=== PATIENT | female | born 1970 | race Caucasian/White ===

== ENCOUNTER 2016-07-16 19:35 | Inpatient (IN) ==
--- NOTE | 2016-07-16 21:03 | Emergency Department Note ---
Disposition Clinical Impression: Osteomyelitis of foot, left, acute Disposition: Admitted As Inpatient Condition: Fair Referrals: NO,PCP [Primary Care Provider] - Forms: ED Satisfaction Letter Time of Disposition: 00:46 Extremity Problem HPI - General Chief complaint: ED Extremity Injury, Lower Stated complaint: left foot swelling Time Seen by Provider: 07/16/16 20:51 Source: patient Limitations: no limitations Nursing Notes Reviewed: Yes Vital Signs Reviewed: Yes - History of Present Illness HPI Narrative: 45-year-old nontoxic-appearing female presents emergency Department with chief complaint of left great toe pain and swelling. Patient states that approximately 2 weeks ago, she had her entire nail removed from the left great toe due to an ingrown toenail. She states that it was so severely ingrown that that was the only option they were left with. She states that over the course of the past 3-4 days, she has noticed increased swelling, redness, and pain of her left great toe. She denies any trauma or reinjuring the area that could account for this increased pain. She denies any fever, chills, nausea, vomiting , diarrhea, abdominal pain. She states this procedure was not performed by a sanitation truck cleaner, however it was performed at a primary care provider's office. Pt Subjective Complaint: extremity pain (Left great toe), extremity swelling ( Left Great toe) Onset (ago): day(s) (3-4) Consistency: Worsening Injury Location: left, toe (Great toe) Pain Scale: 9 Quality: sharp Radiation: none Improves with: nothing Worsens with: range of motion, weight bearing, walking, palpation Associated symptoms: Reports: denies other symptoms Context: recent surgery/procedure - Related Data Allergies Allergy/AdvReac Type Severity Reaction Status Date / Time No Known Allergies Allergy Verified 07/16/16 19:48 All systems ED: reviewed and negative except as stated. Constitutional: Denies: fever, chills, weakness, weight change Cardiovascular: Denies: chest pain, palpitations, dyspnea on exertion, edema, syncope Respiratory: Denies: cough, dyspnea, wheezes, hemoptysis, stridor Gastrointestinal: Denies: abdominal pain, nausea, vomiting, diarrhea, constipation, hematemesis, melena, hematochezia Musculoskeletal: Reports: as per HPI, joint swelling (Left great toe), arthralgia (Great toe) Integumentary: Denies: rash, abrasion, lesions Neurological: Denies: headache, weakness, numbness, paresthesias, confusion, abnormal gait, vertigo Psychiatric: Denies: anxiety, depression, suicidal thoughts, homicidal thoughts , auditory hallucinations, visual hallucinations Endocrine: Denies: fatigue Hematological/Lymphatic: Denies: easy bleeding, easy bruising Past Medical History - Past Medical History Attestation: Yes The following information was validated with the patient. Source: patient Medical history: Reports: no medical history Psychiatric history: Reports: anxiety, bipolar - Social History Smoking Status: Current every day smoker Alcohol use: Reports: none Drug use: Reports: none Physical Exam - General Limitations: no limitations General appearance: alert, in no apparent distress - Head Head exam: atraumatic, normocephalic, normal inspection - Eye Eye exam: Present: normal appearance, PERRL, EOMI. Absent: nystagmus - ENT ENT exam: mucous membranes moist - Neck Neck exam: Present: normal inspection, full ROM, trachea midline. Absent: lymphadenopathy - Chest Chest inspection: Present: normal inspection, symmetric chest wall rise - Respiratory Respiratory exam: Present: normal lung sounds bilaterally. Absent: respiratory distress, wheezes, stridor, accessory muscle use, prolonged expiratory phase - Cardiovascular Cardiovascular exam: Present: regular rate, normal rhythm, normal heart sounds - Abdominal Exam Abdominal exam: Present: soft, Non-Tender, normal bowel sounds. Absent: tenderness, distention, guarding, rebound, rigidity - Expanded Lower Extremity Exam Upper leg exam: Present: normal inspection, full ROM Knee exam: Present: normal inspection, full ROM Lower leg exam: Present: normal inspection, full ROM Ankle exam: Present: normal inspection, full ROM Foot/toe exam: Present: tenderness (Left great toe, diffuse), swelling (Great toe), ecchymosis (Left great toe, predominantly overlying the area of the PIP joint), erythema. Absent: abrasion, laceration, deformity, crepitus, dislocation, amputation, puncture wound, foreign body, nail avulsion, subungual hematoma Neurovascular/Tendon exam: Present: normal 2-point discrimination, normal fine/ light touch. Absent: pulse deficit, motor deficit, sensory deficit, tendon deficit, extremity cold to touch, pallor, foot drop Gait: observed and normal - Back Exam Back exam: Present: normal inspection, full ROM. Absent: tenderness - Neurological Exam Neurological exam: Present: alert, oriented X3 - Psychiatric Psychiatric exam: Present: normal affect, normal mood - Skin Skin exam: Present: warm, dry, intact, erythema (As described above). Absent: rash, cyanosis, diaphoresis Course Course Narrative: We will obtain lab work including a CBC, BMP, sedimentation rate, and uric acid. We will obtain x-ray imaging of the left great toe and reevaluate. Case discussed with Dr. Jenkins. Dr. Jenkins had a [id number] evaluation with the patient and reviewed the CT scan results personally. Dr. Jenkins recommends admission to the hospital for IV antibiotics. I have discussed this plan with the patient and the patient is in agreement. At this time I am awaiting for a return call from the hospitalist. [id number]: The hospitalist has yet to return a call. I have notified the charge nurse of this, and she states that she will have the hospitalist re-paged. - Reevaluation(s) Reevaluation #1: Dr. Peralta returned telephone call and accepts patient for admission to the hospitalist service. Time: 00:45 Vital Signs Temperature 97.8 F 07/16/16 19:45 Pulse Rate 97 07/16/16 19:45 Respiratory Rate 18 07/16/16 19:45 Blood Pressure 151/86 07/16/16 19:45 O2 Sat by Pulse Oximetry 94 L 07/16/16 19:45 Temperature 97.8 F 07/16/16 19:45 Pulse Rate 88 07/17/16 00:20 Respiratory Rate 16 07/17/16 00:20 Blood Pressure 132/88 07/17/16 00:20 O2 Sat by Pulse Oximetry 94 L 07/17/16 00:20 Oxygen Delivery Oxygen Delivery Room Air Extremity Problem, Nontraumati - Medical Records Medical records reviewed: Yes I reviewed the patient's medical records. - Lab Data Lab results reviewed: Yes I reviewed the patient's lab results. Result diagrams: 07/16/16 21:03 07/16/16 21:03 Lab Results 07/16/16 07/16/16 07/16/16 Range/Units 21:03 21:03 21:03 WBC 7.5 (4.3-11.1) K/mcL RBC 5.14 H (3.82-4.97) M/mcL Hgb 16.4 H (11.5-15.4) g/dL Hct 50.1 H (35.3-44.9) % MCV 97.5 (83.0-100.0) fL MCH 31.9 (28.0-33.3) pg MCHC 32.7 (31.6-35.5) g/dL RDW 12.5 (11.5-14.5) % Plt Count 147 (140-400) K/mcL MPV TNP Immature Gran % 0.3 (0-4) % Seg Neutrophils % 47.5 % Lymphocytes % 40.7 % Monocytes % 10.0 % Eosinophils % 1.1 % Basophils % 0.4 % Neutrophils # 3.6 (1.6-8.9) K/mcL Lymphocytes # 3.1 (0.6-4.6) K/mcL Monocytes # 0.8 (0.0-1.3) K/mcL Eosinophils # 0.1 (0.0-0.6) K/mcL Basophils # 0.0 (0.0-0.2) K/mcL Immature Plt Fraction 11.0 H (1.1-6.1) % ESR 62 H (0-15) mm/hr Sodium 145 (136-145) mEq/L Potassium 3.9 (3.5-4.5) mEq/L Chloride 106 (98-109) mEq/L Carbon Dioxide 29 (19-29) mEq/L BUN 10 (7-20) mg/dL Creatinine 0.95 (0.57-1.11) mg/dL Est GFR ( Amer) > 60 (> 60) Est GFR (Non-Af Amer) > 60 (> 60) BUN/Creatinine Ratio 11 (6-26) Glucose 107 H (70-99) mg/dL Calculated Osmolality 300 (280-300) Uric Acid 4.7 (2.6-6.0) mg/dL Calcium 9.0 (8.6-10.8) mg/dL - Radiology Data Radiology results reviewed: Yes I reviewed the patient's radiology results. Toe X-Ray 07/16/16 20:51 IMPRESSION: Findings suspicious for osteomyelitis of the left 1st distal phalanx. D/ / Chaz Alcala MD / Chaz Alcala MD Interpreting Provider: Chaz Alcala MD Foot CT 07/16/16 21:38 IMPRESSION: Osteomyelitis of the distal phalanx of the great toe with small overlying abscess. D/ / José Luis Reddy MD / José Luis Reddy MD Interpreting Provider: José Luis Reddy MD Attestation Statement - Attestation Attestation: I examined this patient and my medical decision-making was reviewed with the RAPIER INSERTION LOOM FIXER/PA/Advanced Practice Nurse/Resident Physician. I agree with the documented findings, disposition and treatment plan as described except to the extent set forth below. Evzz-di-kmsg time provided in conjunction with Real Ignacio CNP. Patient seen and evaluated for left great toe swelling and erythema several days after having an ingrown toenail removed. She does have circumferential erythema to the phalanx proximal to the nail. Labs reviewed by me. Plan of care and management discussed by me with the mid-level provider. Patient will likely require antibiotic therapy and close follow-up
[2016-07-16 21:10] LABS: Basophils % 0.4 %; Immature Granulocytes % 0.3 % (0-4); Red Cell Distribution Width 12.5 % (11.5-14.5)
[2016-07-16 21:12] LABS: Eosinophils # 0.1 K/mcL (0.0-0.6); Eosinophils % 1.1 %; Hematocrit 50.1 % (35.3-44.9); Hemoglobin 16.4 g/dL (11.5-15.4); Lymphocytes # 3.1 K/mcL (0.6-4.6); Lymphocytes % 40.7 %; Mean Corpuscular HGB Conc 32.7 g/dL (31.6-35.5); Mean Corpuscular Hemoglobin 31.9 pg (28.0-33.3); Mean Corpuscular Volume 97.5 fL (83.0-100.0); Monocytes # 0.8 K/mcL (0.0-1.3); Neutrophils # 3.6 K/mcL (1.6-8.9); Platelet Count 147 K/mcL (140-400); Red Blood Count 5.14 M/mcL (3.82-4.97); Segmented Neutrophils % 47.5 %
[2016-07-16 21:23] LABS: BUN/Creatinine Ratio 11 (6-26); Blood Urea Nitrogen 10 mg/dL (7-20); Carbon Dioxide 29 mEq/L (19-29); Chloride 106 mEq/L (98-109); Glucose 107 mg/dL (70-99); Osmolality,Calculated 300 (280-300); Potassium 3.9 mEq/L (3.5-4.5); Sodium 145 mEq/L (136-145); Uric Acid 4.7 mg/dL (2.6-6.0); eGFR For African Americans > 60 (> 60); eGFR For Non-African Americans > 60 (> 60)
[2016-07-17] MEDS ORDERED: *HR* HYDROcodone/Acet 5/325 mg TABLET PO ONE (00:34)
[2016-07-17] MEDS ORDERED: Piperacillin/Tazobactam 3.375 GM in D5% in Water (Mini-Bag+) 100 ML IVPB ONE (00:44)
[2016-07-17] MEDS ORDERED: Vancomycin 1,250 MG in D5% in Water 250 ML IVPB ONE ×2 (00:44→01:00)
[2016-07-17] MEDS ORDERED: Ondansetron 4 MG/2 ML VIAL IVP PRN (03:44)
[2016-07-17] MEDS ORDERED: Naloxone 0.4 MG/ML INJ IVP PRN (03:44)
--- NOTE | 2016-07-17 03:52 | Internal Med History&Physical ---
Date of Encounter: 07/17/16 Time of Encounter: 03:20 Assessment and Plan (1) Osteomyelitis of foot, left, acute Current visit: Yes Status: Acute -CT foot consistent with Osteomyelitis of the distal phalanx -continue IV abx -concern for abscess on CT foot, if no clinical improvement consider podiatry eval for further evaluation -pain control (2) DVT prophylaxis Current visit: Yes Status: Acute heparin SQ (3) Cigarette smoker Current visit: Yes Status: Acute smoking cessation counseling provided patient not ready to quit at this time nicotine replacement therapy provided (4) Anxiety Current visit: Yes Status: Chronic -reported history of anxiety -Please verify and resume home medications Internal Medicine - H&P: HPI Chief complaint: painful left toe Admitted From: Home Plans for Post Hospital Care: Home History of present illness: Ms. Copeland is a 45 year old female with PMH of anxiety, bipolar disorder, and neuropathy who presents to the ER for evaluation of worsening pain in left great toe. Patient reports undergoing toenail resection 3 weeks ago secondary to an ingrown toenail and states status post surgical resection she started experiencing severe pain. Reports of worsening pain for the last few days without any adequate control with [id number] pain medications to which she came to the ER. In the ER patient was noted to have osteomyelitis of the distal phalanx prompting her admission. At this time she is resting in bed and complains of severe pain in the left great toe which was not adequately relieved with the pain management she received in the ER. She however denies any headache, chest pain, shortness of breath, abdominal pain, nausea, vomiting , fever, or chills. Social Hx: Everyday smoker (1ppd x 20years) Past Med Surg Social Fam HX - Past Medical History Psychiatric history: anxiety, bipolar - Social History Smoking Status: Current every day smoker Alcohol use: none Drug use: none - Family History Father Living Status: Age at : 56 Cause of : [place] Hx Family Cardiac Disorders: Yes Internal Medicine - H&P: Meds Allergies No Known Allergies Allergy (Verified 07/16/16 19:48) All Systems PM: A 10-system review of systems was performed and is negative for pertinent findings except as documented above in the HPI. - Constitutional Constitutional: as per HPI - Constitutional Vitals: Temp Pulse Resp BP Pulse Ox 97.3 F L 83 17 148/95 95 01/13/17 02:13 07/17/16 02:13 07/17/16 02:13 07/17/16 02:13 07/17/16 02:13 General appearance: Present: cooperative, mild distress (painful distress in left great toe), A&O X 3, obese, answers questions appropriately - Head Head exam: Present: atraumatic, normocephalic - Eye Eye exam: Present: PERRL, conjuntiva pink, sclera anicteric - Respiratory Respiratory exam: Present: CTAB. Absent: accessory muscle use, rales, rhonchi, wheezes - Cardiovascular Cardiovascular exam: Present: RRR, +S1, +S2. Absent: diastolic murmur, gallop, rubs, systolic murmur - GI/Abdominal GI/Abdominal exam: Present: normal bowel sounds, soft, no peritoneal signs. Absent: distended, tenderness - Extremities Exam Extremities exam: Present: tenderness (left great toe erythema/tenderness), warm , radial pulses palpable and symetrical. Absent: calf tenderness, pedal edema - Neurological Exam Neurological exam: Present: alert, oriented X3, no focal deficits - Psychiatric Psychiatric exam: Present: normal affect, normal mood Internal Med - H&P Results - Labs CBC & Chem 7: 07/16/16 21:03 07/16/16 21:03
[2016-07-17] MEDS: *HR* Heparin 5,000 UNIT/ML VIAL SQ SCH ×3 (04:05→22:34)
[2016-07-17] MEDS: 0.9 % Sodium Chloride 1,000 ML IVC SCH ×2 (04:05→16:41)
[2016-07-17] MEDS: *HR* Morphine 2 MG/ML SYRINGE IVP PRN ×4 (04:05→20:05)
[2016-07-17] MEDS: Nicotine 21 MG PATCH.TD24 TD SCH (04:05)
[2016-07-17 04:36] LABS: Basophils % 0.4 %; Monocytes % 10.4 %
[2016-07-17 04:38] LABS: Eosinophils # 0.1 K/mcL (0.0-0.6); Eosinophils % 1.2 %; Hematocrit 44.6 % (35.3-44.9); Hemoglobin 14.6 g/dL (11.5-15.4); Immature Granulocytes % 0.1 % (0-4); Immature Platelets 9.1 % (1.1-6.1); Lymphocytes % 45.7 %; Mean Corpuscular HGB Conc 32.7 g/dL (31.6-35.5); Mean Corpuscular Hemoglobin 31.9 pg (28.0-33.3); Mean Corpuscular Volume 97.4 fL (83.0-100.0); Monocytes # 0.9 K/mcL (0.0-1.3); Platelet Count 119 K/mcL (140-400); Red Blood Count 4.58 M/mcL (3.82-4.97); Red Cell Distribution Width 12.6 % (11.5-14.5); Segmented Neutrophils % 42.2 %
[2016-07-17 04:54] LABS: Chol/HDL Ratio 4.6 (0-4.9); Magnesium 2.1 mg/dL (1.6-2.6); Phosphorous 3.5 mg/dL (2.3-4.7)
[2016-07-17] MEDS ORDERED: Vancomycin 1,000 MG in D5% in Water 250 ML IVPB SCH (06:00)
[2016-07-17 06:51] LABS: Lymphocytes # 3.8 K/mcL (0.6-4.6); Neutrophils # 3.5 K/mcL (1.6-8.9)
[2016-07-17 06:52] LABS: Large Platelets Present (Not Present); Platelet Estimate Decreased (Normal)
[2016-07-17] MEDS: Piperacillin/Tazobactam 3.375 GM in D5% in Water (Mini-Bag+) 100 ML IVPB SCH ×2 (08:55→16:40)
[2016-07-17] MEDS: Vancomycin 1,250 MG in D5% in Water 250 ML IVPB SCH (14:44)
[2016-07-17] MEDS: *HR* OxyCODONE/APAP 5/325 TABLET PO PRN ×2 (16:39→22:35)
--- NOTE | 2016-07-17 16:53 | Podiatry Consult Note ---
Date of Encounter: 07/17/16 Time of Encounter: 10:00 Assessment and Plan (1) Osteomyelitis of foot, left, acute Current visit: Yes Status: Acute Assessed and examined patient at bedside Mild irritation noted to toe #1 left foot not extending past IP joint of toe No open areas or injury noted to toe Explained imaging results to patient at this time Explained options for treatment- medical management or possible OR intervention per for I&D and debridement of distal phalanx Patient emotional at this time Explained that would be by this evening to explain options again, go over surgical procedure if necessary and to make a final decision Verbalized understanding agreeable with plan Continue antibiotic therapy at this time Limit weight bearing Call with worsening of symptoms or any concerns History of Present Illness HPI: Ms. Copeland is a 45 year old female with PMH of anxiety, bipolar disorder, and neuropathy who presents to the ER for evaluation of worsening pain in left great toe. Patient reports undergoing toenail resection 3 weeks ago secondary to an ingrown toenail at [facility] and states that a few days after nail avulsion a motorized scooter fell on her toe. Reports of worsening pain for the last few days without any new injury and without adequate control with hlou-hpk-exnoxip pain medications CT reveals osteomyelitis of the distal phalanx of toe #1. She is resting comfortably on arrival. denies any chest pain, shortness of breath, nausea, vomiting. States she had some chills through the night. Past Med Surg Social Fam HX - Past Medical History Medical history: no medical history Psychiatric history: anxiety, bipolar - Social History Smoking Status: Current every day smoker Alcohol use: none Drug use: none - Family History Father Living Status: Age at : 56 Cause of : ID Hx Family Cardiac Disorders: Yes Medications and Allergies Buspirone HCl [Buspar] 15 mg PO BID PRN 07/17/16 [History] Cephalexin [Keflex] 500 mg PO TID 07/17/16 [History] Doxepin [Sinequan] 25 mg PO DAILY 07/17/16 [History] Gabapentin [Gabapentin] 600 mg PO QID PRN 07/17/16 [History] Lamotrigine [Lamotrigine] 200 mg PO BID 07/17/16 [History] Quetiapine Fumarate [Seroquel] 25 - 50 mg PO HS 07/17/16 [History] Allergies No Known Allergies Allergy (Verified 07/16/16 19:48) All Systems Reviewed: A 10-system review of systems was performed and is negative for pertinent findings except as documented above in the HPI. Physical Exam - Constitutional Vitals: Temp Pulse Resp BP Pulse Ox 98.1 F 86 18 154/91 95 07/17/16 15:56 07/17/16 15:56 07/17/16 15:56 07/17/16 15:56 07/17/16 15:56 Exam: Patient is awake alert and oriented on arrival Patient states pain to left great toe 5/10 at this time Distal aspect of left great toe noted to appear mildly irritated in appearance with slight erythema and edema, marked per nurse to monitor, does not extend past IP joint of toe. Patient confirms pain with palpation Noted area of complete nail avulsion, some regrowth of nail noted. Nail bed does not appear infected at this time There are no noted open areas of visible abscessed areas No ulcerations No abrasions or lacerations No ecchymosis Mild warmth noted to toe Pulses +2/4, cap refill <3 seconds, warm from tibia to toes to LLE Sensation intact to light touch Patient denies any numbness or tingling ROM intact muscle strength 5/5 to LLE No edema noted to BLE Results - Labs Result Diagrams: 07/19/16 06:34 07/19/16 06:34 Labs: Abnormal lab results Plt Count 119 K/mcL (140-400) L 07/17/16 04:03 MPV 15.0 fL (9.4-12.4) H 07/17/16 04:03 Platelet Estimate Decreased (Normal) L 07/17/16 04:03 Large Platelets Present (Not Present) A 07/17/16 04:03 Immature Plt Fraction 9.1 % (1.1-6.1) H 07/17/16 04:03 ESR 62 mm/hr (0-15) H 07/16/16 21:03 Glucose 107 mg/dL (70-99) H 07/16/16 21:03 C-Reactive Protein 7 mg/L (Less than 5) H 07/17/16 04:03 LDL Cholesterol, Calc 103 mg/dL (0-99) H 07/17/16 04:03 HDL Cholesterol 33 mg/dL (40-59) L 07/17/16 04:03 H & H 07/17/16 Range/Units 04:03 Hgb 14.6 D (11.5-15.4) g/dL Hct 44.6 (35.3-44.9) % All other labs normal. Consult Discharge Plan - Plan Referrals: NO,PCP [Primary Care Provider] -
--- NOTE | 2016-07-17 17:15 | Internal Med Progress Note ---
Date of Encounter: 07/17/16 Time of Encounter: 10:00 - Assessment and plan (1) Osteomyelitis of foot, left, acute Current Visit: Yes Status: Acute Assessment and plan: CT shows acute osteomyelitis. On Vanco and Zosyn. Podiatry consult appreciated. Plan for surgery tomorrow. Patient is at high risk because she has acute osteomyelitis need a surgical intervention, also she is on vancomycin which need close monitoring (2) Anxiety Current Visit: Yes Status: Chronic Assessment and plan: Continue home medication. Adequate pain control. (3) Cigarette smoker Current Visit: Yes Status: Acute Assessment and plan: Smoking cessation education. Patient is on nicotine patch. (4) DVT prophylaxis Current Visit: Yes Status: Acute Assessment and plan: Hypertension subcutaneously - Time Spent With Patient Greater than 35 minutes - Subjective Interval history: Patient is a 45-year-old female admitted for left first toe infection. Her past medical history is significant for anxiety, bipolar disorder, and tobacco abuse. Patient was seen and examined. She is in acute pain. No fever, vital signs stable. Podiatry consult appreciated, plan for surgery tomorrow morning. Will continue vancomycin and Zosyn treatment. - Constitutional Vitals: Temp Pulse Resp BP Pulse Ox 98.1 F 86 18 154/91 95 07/17/16 15:56 07/17/16 15:56 07/17/16 15:56 07/17/16 15:56 07/17/16 15:56 General appearance: Present: cooperative, mild distress (painful distress in left great toe), A&O X 3, obese, answers questions appropriately - Head Head exam: Present: atraumatic, normocephalic - Eye Eye exam: Present: PERRL, conjuntiva pink, sclera anicteric Pupils: Present: PERRL - Neck Neck exam general surgery: Present: supple, trachea midline. Absent: lymphadenopathy - Respiratory Respiratory exam: Present: CTAB. Absent: accessory muscle use, rales, rhonchi, wheezes - Cardiovascular Cardiovascular exam: Present: RRR, +S1, +S2. Absent: diastolic murmur, gallop, rubs, systolic murmur - GI/Abdominal GI/Abdominal exam: Present: normal bowel sounds, soft, no peritoneal signs. Absent: distended, tenderness - Extremities Exam Extremities exam: Present: warm, radial pulses palpable and symetrical. Absent : calf tenderness, cyanotic, pedal edema Additional comments: The great toe of left foot is swelling, with severe tenderness. - Neurological Exam Neurological exam: Present: CN II-XII intact, oriented X3, no focal deficits. Absent: pronater drift, facial droop, speech deficit - Skin Skin exam: Present: dry, intact Internal Medicine: Result - Labs CBC & Chem 7: 07/17/16 04:03 07/16/16 21:03 Labs: Short CBC 07/17/16 Range/Units 04:03 WBC 8.2 (4.3-11.1) K/mcL Hgb 14.6 D (11.5-15.4) g/dL Hct 44.6 (35.3-44.9) % Plt Count 119 L (140-400) K/mcL Neutrophils # 3.5 (1.6-8.9) K/mcL Consult Discharge Plan - Plan Referrals: NO,PCP [Primary Care Provider] -
[2016-07-17] MEDS ORDERED: Gabapentin 300 MG CAPSULE PO PRN (17:20)
[2016-07-17] MEDS: lamoTRIgine 100 MG TABLET PO SCH (22:36)
[2016-07-18] MEDS: *HR* Morphine 2 MG/ML SYRINGE IVP PRN ×4 (00:23→18:18)
[2016-07-18] MEDS: Piperacillin/Tazobactam 3.375 GM in D5% in Water (Mini-Bag+) 100 ML IVPB SCH ×3 (00:24→15:27)
[2016-07-18] MEDS: Vancomycin 1,250 MG in D5% in Water 250 ML IVPB SCH ×2 (04:15→16:06)
[2016-07-18] MEDS: *HR* Heparin 5,000 UNIT/ML VIAL SQ SCH ×2 (05:31→21:38)
[2016-07-18] MEDS: *HR* OxyCODONE/APAP 5/325 TABLET PO PRN ×3 (06:34→21:43)
[2016-07-18] MEDS: lamoTRIgine 100 MG TABLET PO SCH ×3 (07:09→21:38)
[2016-07-18] MEDS: Nicotine 21 MG PATCH.TD24 TD SCH (07:14)
[2016-07-18] MEDS: 0.9 % Sodium Chloride 1,000 ML IVC SCH (10:02)
--- NOTE | 2016-07-18 10:16 | Podiatry Progress Note ---
Date of Encounter: 07/17/16 Time of Encounter: 18:10 - Assessment and Plan (1) Osteomyelitis of foot, left, acute Current Visit: Yes Status: Acute Assessment: #1 osteomyelitis with ischemia of the left great toe #2 comorbidities as outlined in history Plan: #1 agree with antibiotic therapy #2 we discussed the risks versus benefits as well as alternatives to partial amputation left great toe to eradicate the infection and control pain. We discussed 6 weeks of IV antibiotics versus surgical intervention. Regardless we would need to perform a bone biopsy to determine the infecting organism. Patient opted for distal toe amputation. We discussed the risks versus benefits of that procedure. Risks include but not limited to loss of toe, toes, foot, leg, life, DVT, blood clots. Need for further surgery , failure of this procedure to produce desired results. Patient voices comprehension agrees to plan of care. Patient had opportunity to ask questions about planned procedure and its implications ramifications complications. Those questions were answered to her satisfaction. We will proceed the next 24 hours. Subjective Principal diagnosis: Osteomyelitis of the great toe, left foot. Interval history: Patient states that she had a ingrown nail removed approximately 1 month ago. She then subsequently sustained a contusion to left great toe proximally 2-3 weeks after she had nail surgery. She presented to the ED with increasing signs of pain redness and swelling to the left great toe. Imaging relates likely osteomyelitis. In spite of the fact that she has readily palpable pulses we cannot completely rule out ischemia as a secondary cause of her pain and soft tissue changes to her left great toe. She presently is in significant pain as she is sitting on the bed holding her foot rocking back and forth. This in spite of pain control. Patient is alert and oriented no fever chills nausea vomiting. No chest pain or shortness of breath. She answers questions directly without hesitation. Objective - Vital Signs Vital Signs: Vital Signs Temp Pulse Resp BP Pulse Ox 07/18/16 06:30 98.0 F 67 18 146/85 97 07/18/16 00:22 98 F 71 15 124/82 95 07/17/16 19:37 98.3 F 73 17 152/90 97 07/17/16 15:56 98.1 F 86 18 154/91 95 07/17/16 11:06 98.0 F 88 18 147/82 95 Intake and Output 07/17/16 07/18/16 07/18/16 23:59 07:59 15:59 Intake Total 1100 / 1100 1350 / 1350 Balance 1100 / 1100 1350 / 1350 Intake: IV Fluids 1100 / 1100 1350 / 1350 0.9 % Sodium Chloride 1, 1000 / 1000 1000 / 1000 000 ML @ 75 mls/hr IVC . [id number] [facility]ARD[facility] Rx#: [id number] Zosyn 3.375 GM In 100 / 100 100 / 100 Dextrose 5% (Minibag+) 100 ML 100 ML @ 25 mls/hr IVPB Q8HR [facility] Rx#: [id number] Vancocin 1,250 MG In 250 / 250 Dextrose 5% 250 ML @ 166. 667 mls/hr IVPB Q12H [facility] Rx#:[id number] - Exam Exam: Exam vascular: Pedal pulses are palpable DP and PT graded 2/4 left foot. Skin is warm to touch from knees to toes except for left great toe which is cool but does have capillary fill time of less than 3 seconds. All, lateral 4 toes have a capillary fill time of 2 seconds or less.. We do not see any active draining sinus on the dorsal aspect of her left great toe. Neurologic: No gross or focal neurological deficits. No spasticity. No rigidity. No flaccidity. Musculoskeletal: No gross defect or deformity on visual examination. Patient does have adequate range of motion active and passive of the ankle subtalar metatarsophalangeal joints except for guarding of the left great toe due to pain. Integument Robert cyanotic dusky ischemic right great toe is edematous With a painful to touch., On the distal one third of the toe. There is no evidence of cellulitis or lymphangitis emanating from the toe itself proximally. Incision: Present: red, swollen - Lab Result Diagrams: 07/17/16 04:03 07/16/16 21:03 Labs: Abnormal lab results Plt Count 119 K/mcL (140-400) L 07/17/16 04:03 MPV 15.0 fL (9.4-12.4) H 07/17/16 04:03 Platelet Estimate Decreased (Normal) L 07/17/16 04:03 Large Platelets Present (Not Present) A 07/17/16 04:03 Immature Plt Fraction 9.1 % (1.1-6.1) H 07/17/16 04:03 ESR 62 mm/hr (0-15) H 07/16/16 21:03 Glucose 107 mg/dL (70-99) H 07/16/16 21:03 C-Reactive Protein 7 mg/L (Less than 5) H 07/17/16 04:03 LDL Cholesterol, Calc 103 mg/dL (0-99) H 07/17/16 04:03 HDL Cholesterol 33 mg/dL (40-59) L 07/17/16 04:03 Consult Discharge Plan - Plan Referrals: NO,PCP [Primary Care Provider] -
[2016-07-18 10:21] LABS: Monocytes % 9.9 %
[2016-07-18 10:23] LABS: Basophils % 0.3 %; Eosinophils # 0.1 K/mcL (0.0-0.6); Eosinophils % 1.4 %; Hematocrit 44.5 % (35.3-44.9); Hemoglobin 14.7 g/dL (11.5-15.4); Immature Granulocytes % 0.2 % (0-4); Immature Platelets 10.1 % (1.1-6.1); Lymphocytes # 2.4 K/mcL (0.6-4.6); Lymphocytes % 42.1 %; Mean Corpuscular Hemoglobin 31.9 pg (28.0-33.3); Mean Corpuscular Volume 96.5 fL (83.0-100.0); Mean Platelet Volume 15.3 fL (9.4-12.4); Monocytes # 0.6 K/mcL (0.0-1.3); Neutrophils # 2.7 K/mcL (1.6-8.9); Red Blood Count 4.61 M/mcL (3.82-4.97); Red Cell Distribution Width 12.5 % (11.5-14.5); Segmented Neutrophils % 46.1 %
[2016-07-18 10:33] LABS: BUN/Creatinine Ratio 9 (6-26); Blood Urea Nitrogen 6 mg/dL (7-20); Calcium 8.6 mg/dL (8.6-10.8); Carbon Dioxide 25 mEq/L (19-29); Chloride 107 mEq/L (98-109); Glucose 92 mg/dL (70-99); Osmolality,Calculated 289 (280-300); Potassium 3.9 mEq/L (3.5-4.5); Sodium 141 mEq/L (136-145); eGFR For African Americans > 60 (> 60); eGFR For Non-African Americans > 60 (> 60)
[2016-07-18 11:06] LABS: Platelet Count 98 K/mcL (140-400)
[2016-07-18] MEDS ORDERED: Albuterol 2.5 MG/3 ML NEBULIZER ONE (11:06)
[2016-07-18] MEDS ORDERED: Albuterol 2.5 MG/3 ML NEBULIZER IH ONE (11:06)
--- NOTE | 2016-07-18 11:09 | Anesthesia Evaluation PreOp ---
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: Denies Any Significant HX, Other (bipolar, anxiety, chronic LBP with occasional radiculopathy left leg) Other Medical History: Hepatic (Hepatitis C), GERD Anesthesia History: No Prior Anesthetic Complications, Past Anesthesia (daniel, csection, knee arthroscopy, exp lap) Alcohol Use: none Drug use: none Medications and Allergies Buspirone HCl [Buspar] 15 mg PO BID PRN 07/17/16 [History] Cephalexin [Keflex] 500 mg PO TID 07/17/16 [History] Doxepin [Sinequan] 25 mg PO DAILY 07/17/16 [History] Gabapentin [Gabapentin] 600 mg PO QID PRN 07/17/16 [History] Lamotrigine [Lamotrigine] 200 mg PO BID 07/17/16 [History] Quetiapine Fumarate [Seroquel] 25 - 50 mg PO HS 07/17/16 [History] Allergies No Known Allergies Allergy (Verified 07/16/16 19:48) - Meds/Allergy Pre-op Review Medications Reviewed: Yes Allergies Reviewed: Yes Beta Blockers on Current Med List: No Anesthesia Results - Labs 07/18/16 09:35 07/18/16 09:35 Anesthesia Exam O2 Sat O2 Sat by Pulse Oximetry 97 O2 Sat by Pulse Oximetry 95 O2 Sat by Pulse Oximetry 97 O2 Sat by Pulse Oximetry 95 Vital Signs Temp Pulse Resp BP Pulse Ox 97.8 F 97 18 151/86 94 L 07/16/16 19:45 07/16/16 19:45 07/16/16 19:45 07/16/16 19:45 07/16/16 19:45 Height: 64 Weight: 76 NPO (# of Hours): greater than 8 hours - HEENT Pupil (Motor): Pupils equal Mallampati: II Teeth: Edentulous Oral Opening: Greater than 3 - LETTER OF CREDIT DOCUMENT EXAMINER LOC: Oriented LETTER OF CREDIT DOCUMENT EXAMINER Motor: Normal RUE, Normal LUE, Normal RLE, Normal LLE, Normal Face LETTER OF CREDIT DOCUMENT EXAMINER Sensory: Normal: RUE, LUE, RLE, LLE, Face - Cardiac Rhythm: Regular Murmur: None JVD: No Carotid Bruit: No - Pulmonary Breath Sounds: bilateral Clear Respiratory Effort: Symmetrical Anesthesia Assess/Plan ASA Score: 2 Modified Ayanna Scale for Level of Consciousness: Cooperative, oriented, and tranquil Anesthetic Plan: MAC Monitoring Plan: Standard Monitors Recovery Plan: PACU <Delgado Melo - Last Filed: 07/18/16 12:37> Date of Encounter: 07/18/16 - Past History : No Test: Negative (07/18/2016) Anesthesia Results - Labs 07/18/16 09:35 07/18/16 09:35
[2016-07-18] MEDS ORDERED: Propofol 500 MG/50 ML INFUS..BTL ONE (11:32)
[2016-07-18] MEDS ORDERED: *HR* FentaNYL (PF) 100 MCG/2 ML VIAL ONE (11:33)
[2016-07-18] MEDS ORDERED: Ondansetron 4 MG/2 ML VIAL ONE (11:33)
[2016-07-18] MEDS ORDERED: Lidocaine -MPF 2% 2 ML VIAL ONE (11:33)
[2016-07-18] MEDS ORDERED: *HR* Midazolam HCl 2 MG/2 ML VIAL ONE (11:38)
[2016-07-18] MEDS ORDERED: Bupivacaine/Clonidine Syringe 1 EACH SYRINGE ONE (11:54)
[2016-07-18] MEDS ORDERED: Naloxone 0.4 MG/ML INJ IVP PRN (14:04)
[2016-07-18] MEDS ORDERED: Ondansetron 4 MG/2 ML VIAL IVP PRN (14:04)
--- NOTE | 2016-07-18 14:04 | Anesthesia Evaluation Post Op ---
Date of Encounter: 07/18/16 Time of Encounter: 14:04 - Vital Signs Vital Signs: Vital Signs/O2 Sat, Most Current Temp Pulse Resp BP Pulse Ox 98.0 F 67 18 146/85 97 07/18/16 06:30 07/18/16 06:30 07/18/16 06:30 07/18/16 06:30 07/18/16 06:30 - Lungs Lungs: Clear Ascult./Percussion - Airway Airway: Non-obstructed - Cardiovascular Regular Rate - Mental Status Mental Status: Alert & Oriented, Answers Appropriately - Pain Pain Scale: 0 Pain Scale used: Numeric (1 - 10) - Nausea Vomiting Nausea Vomiting: Not Present - Hydration Hydration: NPO, Has not voided - Discharge PostOp Status: Transfer Patient to floor
--- NOTE | 2016-07-18 14:10 | Orthopedic Operative Note ---
Date of procedure: 07/18/16 Pre-op diagnosis: Osteomyelitis left great toe Post-op diagnosis: other (Osteomyelitis with abscess formation distal phalanx left great toe) Procedure: 07/18/16 14:04 #1 incision and drainage to bone cortex for osteomyelitis #2 partial amputation toe #1 left foot Implants: None Complications: None Anesthesia: MAC Local Anesthetics: 0.25% Sensorcaine HCL SubQ (cc) Surgeon: Delgado Wade Estimated blood loss (cc): 5 Tourniquet Time (Minutes): 0 Specimen: Distal toe phalanx #1 left, cultures aerobe and anaerobe Condition: stable Disposition: floor Procedure in Detail: 07/18/16 14:05 Details in summary of procedure: Patient was brought to the surgical suite. A sign in procedure was performed. Patient was then transferred to the surgical table and positioned properly safely securely. Left was elevated on the foam block. No tourniquet was used. Anesthetic timeout was taken. Left ankle was then prepped with alcohol 3 times a modified ankle block was carried out using local anesthesia without difficulty or complication. It was augmented by a V block just proximal to the first metatarsal phalangeal joint. Left foot was then prepped and draped in usual sterile manner. Surgical timeout taken. That juncture planned incision was drawn to the medial aspect of the left great toe with long the metaphysis of the proximal phalanx and brought distally to the level of the IPJ and transversely just distal to the IPJ to the lateral aspect of the toe at the junction of lateral plantar skin and then proximally to the webspace. The plantar flap was then developed by drawing a planned incision from the junction of the IPJ plantarly and then circumferentially around the distal aspect of the toe leading the dorsal incision on the lateral aspect of the digit. That juncture using a #15 scalpel blade incision was made medially and brought distally and along the dorsal aspect of the toe whereupon. Making the incision seropurulent drainage was expressed after the incision was complete. It was medially cultured aerobic and anaerobic. Incision was complete to the lateral aspect of the toe using a fresh blade and using another fresh #15 scalpel blade the plantar flap was then developed. the incisions were carried directly down to bone. That juncture the IP joint was entered and was found to be intact without purulence. Dissection was then carried plantarly and distally along the periosteum of the distal phalanx to the distal incision. The distal phalanx and the distal dorsal aspect the digit within resected and sent for gross and microscopic. The wound was then flushed gross amounts sterile saline. Flexor tendon was isolated and then sewn to the dorsal aspect of the periosteum the proximal phalanx the wound itself was discussed inspected and found to be without any necrosis or purulent drainage. It was clean wound edges were noted to bleed freely without necessitating use of Bovie ligature. After thorough irrigation was sprayed with PRP. Distal flap was remodeled by excising a small V flap with the apex plantar-based dorsal. The wound was then repaired with 3-0 Prolene without difficulty augmented with Steri-Strips to reduce the stress on the incision line itself. Capillary refill time was noted to be less than 3 seconds on either side of the incision dorsal flap and plantar flaps. Wound was dressed with 4 x 4's and a Kerlix dressing with mild compression locations encountered. Patient was sent to holding room in good condition with vital signs stable. Estimate blood loss less than 5 mL.
[2016-07-18] MEDS ORDERED: Vancomycin 1,250 MG in D5% in Water 250 ML IVPB SCH (14:30)
--- NOTE | 2016-07-18 17:39 | Internal Med Progress Note ---
Date of Encounter: 07/18/16 Time of Encounter: 09:00 - Assessment and plan (1) Osteomyelitis of foot, left, acute Current Visit: Yes Status: Acute Assessment and plan: CT shows acute osteomyelitis. On Vanco and Zosyn. Podiatry consult appreciated. Did great toe partial amputation and drainage today.. Patient is at high risk because she has acute osteomyelitis need a surgical intervention, also she is on vancomycin which need close monitoring (2) Anxiety Current Visit: Yes Status: Chronic Assessment and plan: Continue home medication. Adequate pain control. (3) Cigarette smoker Current Visit: Yes Status: Acute Assessment and plan: Smoking cessation education. Patient is on nicotine patch. (4) DVT prophylaxis Current Visit: Yes Status: Acute Assessment and plan: Heparin subcutaneously - Subjective Interval history: Patient is a 45-year-old female admitted for left first toe infection. Her past medical history is significant for anxiety, bipolar disorder, and tobacco abuse. Patient was seen and examined. She did partial amputation of left great toe today. She is in acute pain. No fever, vital signs stable. Will continue vancomycin and Zosyn treatment. - Constitutional Vitals: Temp Pulse Resp BP Pulse Ox 97.9 F 67 18 114/71 95 07/18/16 15:14 07/18/16 15:14 07/18/16 15:14 07/18/16 15:14 07/18/16 15:14 General appearance: Present: cooperative, mild distress (painful distress in left great toe), A&O X 3, obese, answers questions appropriately - Head Head exam: Present: atraumatic, normocephalic - Eye Eye exam: Present: PERRL, conjuntiva pink, sclera anicteric Pupils: Present: PERRL - Neck Neck exam general surgery: Present: supple, trachea midline. Absent: lymphadenopathy - Respiratory Respiratory exam: Present: CTAB. Absent: accessory muscle use, rales, rhonchi, wheezes - Cardiovascular Cardiovascular exam: Present: RRR, +S1, +S2. Absent: diastolic murmur, gallop, rubs, systolic murmur - GI/Abdominal GI/Abdominal exam: Present: normal bowel sounds, soft, no peritoneal signs. Absent: distended, tenderness - Extremities Exam Extremities exam: Present: warm, radial pulses palpable and symetrical. Absent : calf tenderness, cyanotic, pedal edema Additional comments: Left great toe swelling and tender. - Neurological Exam Neurological exam: Present: CN II-XII intact, oriented X3, no focal deficits. Absent: pronater drift, facial droop, speech deficit - Skin Skin exam: Present: dry, intact Internal Medicine: Result - Labs CBC & Chem 7: 07/18/16 09:35 07/18/16 09:35 Labs: Short CBC 07/18/16 Range/Units 09:35 WBC 5.8 (4.3-11.1) K/mcL Hgb 14.7 (11.5-15.4) g/dL Hct 44.5 (35.3-44.9) % Plt Count 98 L (140-400) K/mcL Neutrophils # 2.7 (1.6-8.9) K/mcL BMP 07/18/16 09:35 Sodium 141 Potassium 3.9 Chloride 107 Carbon Dioxide 25 BUN 6 L Creatinine 0.67 Glucose 92 Calcium 8.6 Consult Discharge Plan - Plan Referrals: NO,PCP [Primary Care Provider] -
[2016-07-18] MEDS ORDERED: Ketorolac 30 MG/ML VIAL IVP PRN (21:34)
[2016-07-19] MEDS: *HR* Morphine 2 MG/ML SYRINGE IVP PRN ×4 (00:27→21:43)
[2016-07-19] MEDS: Piperacillin/Tazobactam 3.375 GM in D5% in Water (Mini-Bag+) 100 ML IVPB SCH ×4 (00:34→23:03)
[2016-07-19] MEDS: Gabapentin 300 MG CAPSULE PO PRN (01:23)
[2016-07-19] MEDS ORDERED: Acetaminophen IV 1,000 MG/100 ML INFUS..BTL IVPB ONE (01:48)
[2016-07-19] MEDS: 0.9 % Sodium Chloride 1,000 ML IVC SCH ×3 (04:51→21:44)
[2016-07-19] MEDS: Vancomycin 1,250 MG in D5% in Water 250 ML IVPB SCH ×2 (04:52→15:32)
[2016-07-19] MEDS: *HR* Heparin 5,000 UNIT/ML VIAL SQ SCH ×3 (05:00→21:43)
[2016-07-19 07:08] LABS: Hemoglobin 13.5 g/dL (11.5-15.4); Immature Granulocytes % 0.4 % (0-4); Mean Corpuscular Volume 97.9 fL (83.0-100.0)
[2016-07-19 07:10] LABS: Basophils % 0.5 %; Eosinophils # 0.1 K/mcL (0.0-0.6); Eosinophils % 0.9 %; Hematocrit 41.4 % (35.3-44.9); Immature Platelets 9.3 % (1.1-6.1); Lymphocytes # 2.2 K/mcL (0.6-4.6); Lymphocytes % 38.9 %; Mean Corpuscular HGB Conc 32.6 g/dL (31.6-35.5); Mean Corpuscular Hemoglobin 31.9 pg (28.0-33.3); Mean Platelet Volume 15.7 fL (9.4-12.4); Monocytes # 0.5 K/mcL (0.0-1.3); Monocytes % 9.5 %; Neutrophils # 2.8 K/mcL (1.6-8.9); Red Blood Count 4.23 M/mcL (3.82-4.97); Red Cell Distribution Width 12.9 % (11.5-14.5); Segmented Neutrophils % 49.8 %
[2016-07-19 07:17] LABS: BUN/Creatinine Ratio 7 (6-26); Calcium 8.1 mg/dL (8.6-10.8); Carbon Dioxide 25 mEq/L (19-29); Chloride 112 mEq/L (98-109); Glucose 110 mg/dL (70-99); Osmolality,Calculated 292 (280-300); Potassium 3.8 mEq/L (3.5-4.5); Sodium 142 mEq/L (136-145); eGFR For African Americans > 60 (> 60); eGFR For Non-African Americans > 60 (> 60)
[2016-07-19 07:22] LABS: Blood Urea Nitrogen 5 mg/dL (7-20)
[2016-07-19 08:07] LABS: Platelet Count 91 K/mcL (140-400)
[2016-07-19 08:10] LABS: Reactive Lymphocytes Present (Not Present)
[2016-07-19 08:11] LABS: Platelet Estimate Slight Decrease (Normal)
[2016-07-19] MEDS: lamoTRIgine 100 MG TABLET PO SCH ×2 (08:48→21:44)
[2016-07-19] MEDS: *HR* OxyCODONE/APAP 5/325 TABLET PO PRN ×3 (08:49→23:00)
[2016-07-19] MEDS: Nicotine 21 MG PATCH.TD24 TD SCH (08:49)
--- NOTE | 2016-07-19 14:58 | Podiatry Progress Note ---
Date of Encounter: 07/19/16 Time of Encounter: 14:56 - Assessment and Plan (1) Osteomyelitis of foot, left, acute Current Visit: Yes Status: Acute Assessment: #1 osteomyelitis with ischemia of the left great toe #2 comorbidities as outlined in history Plan: #1 agree with antibiotic therapy #2 we discussed the risks versus benefits as well as alternatives to partial amputation left great toe to eradicate the infection and control pain. We discussed 6 weeks of IV antibiotics versus surgical intervention. Regardless we would need to perform a bone biopsy to determine the infecting organism. Patient opted for distal toe amputation. We discussed the risks versus benefits of that procedure. Risks include but not limited to loss of toe, toes, foot, leg, life, DVT, blood clots. Need for further surgery , failure of this procedure to produce desired results. Patient voices comprehension agrees to plan of care. Patient had opportunity to ask questions about planned procedure and its implications ramifications complications. Those questions were answered to her satisfaction. We will proceed the next 24 hours. Dictation for 07/19/2016 Assessment: #1 postop day #1 partial amputation left great toe healing uneventfully #2 no postoperative complications pain minimal but associated with surgery only. Plan: #1 awaiting cultures intraoperative. , #2 plan on discharge from my standpoint for the next 24/48 hrs. on by mouth antibiotics and local wound care and protective shoe gear/cast boot. Subjective Principal diagnosis: Osteomyelitis of the great toe, left foot. Interval history: Patient states that she had a ingrown nail removed approximately 1 month ago. She then subsequently sustained a contusion to left great toe proximally 2-3 weeks after she had nail surgery. She presented to the ED with increasing signs of pain redness and swelling to the left great toe. Imaging relates likely osteomyelitis. In spite of the fact that she has readily palpable pulses we cannot completely rule out ischemia as a secondary cause of her pain and soft tissue changes to her left great toe. She presently is in significant pain as she is sitting on the bed holding her foot rocking back and forth. This in spite of pain control. Patient is alert and oriented no fever chills nausea vomiting. No chest pain or shortness of breath. She answers questions directly without hesitation. Dictation for 07/19/2016 Patient status post 1 day partial amputation of the great toe. No complications. No shortness of breath no chest pain pain. Patient without intense pain she experienced prior to surgery. Patient's boyfriend and daughter , are present today. Patient states she is relieved that the surgery is over and that she believe she is getting better although she says have some postoperative pain which would be expected. Objective - Vital Signs Vital Signs: Vital Signs Temp Pulse Resp BP Pulse Ox 07/19/16 10:19 98 F 74 16 114/73 98 07/19/16 08:45 68 119/82 07/19/16 06:37 97.8 F 84 18 98/56 96 07/19/16 01:36 80 19 95/62 07/19/16 00:00 97.8 F 87 17 113/70 98 07/18/16 20:00 98.5 F 91 19 97/60 99 07/18/16 15:14 97.9 F 67 18 114/71 95 Intake and Output 07/18/16 07/19/16 07/19/16 23:59 07:59 15:59 Intake Total 630 / 630 580 / 580 120 / 120 Output Total 300 / 300 1150 / 1150 Balance 330 / 330 -570 / -570 120 / 120 Intake: IV Fluids 350 / 350 100 / 100 120 / 120 0.9 % Sodium Chloride 1, 120 / 120 000 ML @ 75 mls/hr IVC . [id number] [facility] Rx#: [id number] Zosyn 3.375 GM In 100 / 100 100 / 100 Dextrose 5% (Minibag+) 100 ML 100 ML @ 25 mls/hr IVPB Q8HR [facility] Rx#: [id number] Vancocin 1,250 MG In 250 / 250 Dextrose 5% 250 ML @ 166. 667 mls/hr IVPB Q12H [facility] Rx#:[id number] Oral 280 / 280 480 / 480 Output: Urine 300 / 300 1150 / 1150 Other: Meal Breakfast Percent of Meal Consumed 100% - Exam Exam: Exam of the incision reveals sutures that are intact. No dehiscence. Steri- Strips intact. Strikethrough drainage on dressing expected. There is no evidence of cellulitis, no lymphangitis, no odor no drainage. Incision: Present: healing, clean and dry - Lab Result Diagrams: 07/19/16 06:34 07/19/16 06:34 Labs: Abnormal lab results Plt Count 91 K/mcL (140-400) L 07/19/16 06:34 MPV 15.7 fL (9.4-12.4) H 07/19/16 06:34 Reactive Lymphocytes Present (Not Present) A 07/19/16 06:34 Platelet Estimate Slight Decrease (Normal) L 07/19/16 06:34 Large Platelets Present (Not Present) A 07/17/16 04:03 Immature Plt Fraction 9.3 % (1.1-6.1) H 07/19/16 06:34 ESR 62 mm/hr (0-15) H 07/16/16 21:03 Chloride 112 mEq/L (98-109) H 07/19/16 06:34 BUN 5 mg/dL (7-20) L 07/19/16 06:34 Glucose 110 mg/dL (70-99) H 07/19/16 06:34 Calcium 8.1 mg/dL (8.6-10.8) L 07/19/16 06:34 C-Reactive Protein 7 mg/L (Less than 5) H 07/17/16 04:03 LDL Cholesterol, Calc 103 mg/dL (0-99) H 07/17/16 04:03 HDL Cholesterol 33 mg/dL (40-59) L 07/17/16 04:03 Consult Discharge Plan - Plan Referrals: NO,PCP [Primary Care Provider] -
--- NOTE | 2016-07-19 17:11 | Internal Med Progress Note ---
Date of Encounter: 07/19/16 Time of Encounter: 10:00 - Assessment and plan (1) Osteomyelitis of foot, left, acute Current Visit: Yes Status: Acute Assessment and plan: CT shows acute osteomyelitis. On Vanco and Zosyn. Podiatry consult appreciated. Did great toe partial amputation and drainage. Patient is at high risk because she has acute osteomyelitis need a surgical intervention, also she is on vancomycin which need close monitoring (2) Anxiety Current Visit: Yes Status: Chronic Assessment and plan: Continue home medication. Adequate pain control. (3) Cigarette smoker Current Visit: Yes Status: Acute Assessment and plan: Smoking cessation education. Patient is on nicotine patch. Code(s): F17.210 - Nicotine dependence, cigarettes, uncomplicated (4) DVT prophylaxis Current Visit: Yes Status: Acute Assessment and plan: Heparin subcutaneously - Time Spent With Patient Greater than 35 minutes - Subjective Interval history: Patient is a 45-year-old female admitted for left first toe infection. Her past medical history is significant for anxiety, bipolar disorder, and tobacco abuse. Patient was seen and examined. She did partial amputation of left great toe yesterday. She is in minimal acute pain, on pain medication. No fever, vital signs stable. Will continue vancomycin and Zosyn treatment. plan for d/c home soon. Podiatry consult and follow-up appreciated. - Constitutional Vitals: Temp Pulse Resp BP Pulse Ox 98.4 F 84 16 122/82 98 07/19/16 15:40 07/19/16 15:40 07/19/16 15:40 07/19/16 15:40 07/19/16 15:40 General appearance: Present: cooperative, mild distress (painful distress in left great toe), A&O X 3, obese, answers questions appropriately - Head Head exam: Present: atraumatic, normocephalic - Eye Eye exam: Present: PERRL, conjuntiva pink, sclera anicteric Pupils: Present: PERRL - Neck Neck exam general surgery: Present: supple, trachea midline. Absent: lymphadenopathy - Respiratory Respiratory exam: Present: CTAB. Absent: accessory muscle use, rales, rhonchi, wheezes - Cardiovascular Cardiovascular exam: Present: RRR, +S1, +S2. Absent: diastolic murmur, gallop, rubs, systolic murmur - GI/Abdominal GI/Abdominal exam: Present: normal bowel sounds, soft, no peritoneal signs. Absent: distended, tenderness - Extremities Exam Extremities exam: Present: warm, radial pulses palpable and symetrical. Absent : calf tenderness, cyanotic, pedal edema Additional comments: Left foot great toe s/p surgery, well dressed. - Neurological Exam Neurological exam: Present: CN II-XII intact, oriented X3, no focal deficits. Absent: pronater drift, facial droop, speech deficit - Skin Skin exam: Present: dry, intact Internal Medicine: Result - Labs CBC & Chem 7: 07/19/16 06:34 07/19/16 06:34 Labs: Short CBC 07/19/16 Range/Units 06:34 WBC 5.6 (4.3-11.1) K/mcL Hgb 13.5 (11.5-15.4) g/dL Hct 41.4 (35.3-44.9) % Plt Count 91 L (140-400) K/mcL Neutrophils # 2.8 (1.6-8.9) K/mcL BMP 07/19/16 06:34 Sodium 142 Potassium 3.8 Chloride 112 H Carbon Dioxide 25 BUN 5 L Creatinine 0.73 Glucose 110 H Calcium 8.1 L Consult Discharge Plan - Plan Referrals: NO,PCP [Primary Care Provider] -
[2016-07-20] MEDS: *HR* Morphine 2 MG/ML SYRINGE IVP PRN ×4 (00:52→19:52)
[2016-07-20] MEDS: Vancomycin 1,250 MG in D5% in Water 250 ML IVPB SCH ×2 (03:59→16:03)
[2016-07-20] MEDS: *HR* Heparin 5,000 UNIT/ML VIAL SQ SCH ×3 (06:53→21:05)
[2016-07-20] MEDS: *HR* OxyCODONE/APAP 5/325 TABLET PO PRN ×3 (06:55→21:04)
[2016-07-20] MEDS: lamoTRIgine 100 MG TABLET PO SCH ×2 (08:19→19:41)
[2016-07-20] MEDS: Nicotine 21 MG PATCH.TD24 TD SCH (08:19)
[2016-07-20] MEDS: Piperacillin/Tazobactam 3.375 GM in D5% in Water (Mini-Bag+) 100 ML IVPB SCH ×2 (08:20→16:04)
--- NOTE | 2016-07-20 12:15 | Podiatry Progress Note ---
Date of Encounter: 07/20/16 Time of Encounter: 12:00 - Assessment and Plan (1) Osteomyelitis of foot, left, acute Current Visit: Yes Status: Acute 1. Intraoperative cultures pending. Patient currently receiving IV vancomycin and Zosyn. WBC: 5.6 and a febrile. 2. Plan to discharge once intraop cultures are back. We will D/C patient on oral antibiotics based on cultures. 3. Patient will need a cam boot and to remain with protective weight bearing. 4. F/U in Podiatry with in one week of discharge from the hospital. Subjective Principal diagnosis: Osteomyelitis of the great toe, left foot. Interval history: Patient is status post I&D bone cortex for osteomyelitis and partial amputation of toe #[address] Wade on 07/18/2016. Patient is sitting on the commode with a dressing dry and intact to the left foot. Patient states pain is better since surgery. No complaints of fever, chills, chest pain, shortness of breath, calf pain, or flulike symptoms. Objective - Vital Signs Vital Signs: Vital Signs Temp Pulse Resp BP Pulse Ox 07/20/16 11:19 98.0 F 91 18 132/86 95 07/20/16 07:06 97.5 F L 94 18 130/86 93 L 07/20/16 01:49 98.5 F 82 16 133/93 96 07/19/16 19:23 98.3 F 76 120/74 98 07/19/16 15:40 98.4 F 84 16 122/82 98 Intake and Output 07/19/16 07/20/16 07/20/16 23:59 07:59 15:59 Intake Total 1730 / 1730 350 / 350 120 / 120 Output Total 400 / 400 Balance 1330 / 1330 350 / 350 120 / 120 Intake: IV Fluids 1230 / 1230 350 / 350 0.9 % Sodium Chloride 1, 880 / 880 000 ML @ 75 mls/hr IVC . [id number] [facility] Rx#: [id number] Zosyn 3.375 GM In 100 / 100 100 / 100 Dextrose 5% (Minibag+) 100 ML 100 ML @ 25 mls/hr IVPB Q8HR [facility] Rx#: [id number] Vancocin 1,250 MG In 250 / 250 250 / 250 Dextrose 5% 250 ML @ 166. 667 mls/hr IVPB Q12H [facility] Rx#:[id number] Oral 240 / 240 120 / 120 Other 260 / 260 Output: Urine 400 / 400 Other: Meal Dinner Breakfast Percent of Meal Consumed 100% 100% Stool Size Moderate Stool Consistency loose liquid Stool Color Brown # Voids 1 # Bowel Movements 1 - Exam Exam: General appearance: alert awake oriented X 3. Calm and pleasant, no acute distress.. Vascular: LLE: No evidence of cyanosis, pallor or rubor, Skin Temperature warm , No calf pain with manual compression. capillary refill time is immediate to digits. Postop Exam: S/P; dressing dry and intact to left foot. - Lab Result Diagrams: 07/19/16 06:34 07/19/16 06:34 Labs: Abnormal lab results Plt Count 91 K/mcL (140-400) L 07/19/16 06:34 MPV 15.7 fL (9.4-12.4) H 07/19/16 06:34 Reactive Lymphocytes Present (Not Present) A 07/19/16 06:34 Platelet Estimate Slight Decrease (Normal) L 07/19/16 06:34 Large Platelets Present (Not Present) A 07/17/16 04:03 Immature Plt Fraction 9.3 % (1.1-6.1) H 07/19/16 06:34 ESR 62 mm/hr (0-15) H 07/16/16 21:03 Chloride 112 mEq/L (98-109) H 07/19/16 06:34 BUN 5 mg/dL (7-20) L 07/19/16 06:34 Glucose 110 mg/dL (70-99) H 07/19/16 06:34 Calcium 8.1 mg/dL (8.6-10.8) L 07/19/16 06:34 C-Reactive Protein 7 mg/L (Less than 5) H 07/17/16 04:03 LDL Cholesterol, Calc 103 mg/dL (0-99) H 07/17/16 04:03 HDL Cholesterol 33 mg/dL (40-59) L 07/17/16 04:03 Microbiology, Last 48 Hours 07/18/16 13:08 Wound Culture - Preliminary Left Great Toe Gram Positive Cocci Consult Discharge Plan - Plan Referrals: NO,PCP [Primary Care Provider] -
[2016-07-20] MEDS: 0.9 % Sodium Chloride 1,000 ML IVC SCH (13:53)
[2016-07-20] MEDS ORDERED: *HR* LORazepam 1 MG TABLET PO ONE (16:14)
--- NOTE | 2016-07-20 16:41 | Internal Med Progress Note ---
Date of Encounter: 07/20/16 Time of Encounter: 09:00 - Assessment and plan (1) Osteomyelitis of foot, left, acute Current Visit: Yes Status: Acute Assessment and plan: CT shows acute osteomyelitis. On Vanco and Zosyn. Podiatry consult appreciated. Did great toe partial amputation and drainage. Wound culture shows gram positive cocci, waiting for final report. Patient is at high risk because she has acute osteomyelitis need a surgical intervention, also she is on vancomycin which need close monitoring (2) Anxiety Current Visit: Yes Status: Chronic Assessment and plan: Continue home medication. Adequate pain control. (3) Cigarette smoker Current Visit: Yes Status: Acute Assessment and plan: Smoking cessation education. Patient is on nicotine patch. Code(s): F17.210 - Nicotine dependence, cigarettes, uncomplicated (4) DVT prophylaxis Current Visit: Yes Status: Acute Assessment and plan: Heparin subcutaneously - Time Spent With Patient Greater than 35 minutes - Subjective Interval history: Patient is a 45-year-old female admitted for left first toe infection. Her past medical history is significant for anxiety, bipolar disorder, and tobacco abuse. Patient was seen and examined. She did partial amputation of left great toe. She is in minimal acute pain, on pain medication. No fever, vital signs stable. Wound culture shows gram-positive cocci. Will continue vancomycin and Zosyn treatment. Waiting for final culture report. Podiatry consult and follow -up appreciated. - Constitutional Vitals: Temp Pulse Resp BP Pulse Ox 97.7 F 80 18 137/88 96 07/20/16 15:24 07/20/16 15:24 07/20/16 15:24 07/20/16 15:24 07/20/16 15:24 General appearance: Present: cooperative, mild distress (painful distress in left great toe), A&O X 3, obese, answers questions appropriately - Head Head exam: Present: atraumatic, normocephalic - Eye Eye exam: Present: PERRL, conjuntiva pink, sclera anicteric Pupils: Present: PERRL - Neck Neck exam general surgery: Present: supple, trachea midline. Absent: lymphadenopathy - Respiratory Respiratory exam: Present: CTAB. Absent: accessory muscle use, rales, rhonchi, wheezes - Cardiovascular Cardiovascular exam: Present: RRR, +S1, +S2. Absent: diastolic murmur, gallop, rubs, systolic murmur - GI/Abdominal GI/Abdominal exam: Present: normal bowel sounds, soft, no peritoneal signs. Absent: distended, tenderness - Extremities Exam Extremities exam: Present: warm, radial pulses palpable and symetrical. Absent : calf tenderness, cyanotic, pedal edema Additional comments: Left great toe S/P surgery, well dressed - Neurological Exam Neurological exam: Present: CN II-XII intact, oriented X3, no focal deficits. Absent: pronater drift, facial droop, speech deficit - Skin Skin exam: Present: dry, intact Internal Medicine: Result - Labs CBC & Chem 7: 07/19/16 06:34 07/19/16 06:34 Consult Discharge Plan - Plan Referrals: NO,PCP [Primary Care Provider] -
[2016-07-21] MEDS: Piperacillin/Tazobactam 3.375 GM in D5% in Water (Mini-Bag+) 100 ML IVPB SCH ×3 (00:21→15:02)
[2016-07-21] MEDS: *HR* Morphine 2 MG/ML SYRINGE IVP PRN ×5 (00:29→21:50)
[2016-07-21] MEDS: *HR* Heparin 5,000 UNIT/ML VIAL SQ SCH ×3 (05:27→21:12)
[2016-07-21] MEDS: Vancomycin 1,250 MG in D5% in Water 250 ML IVPB SCH ×2 (05:27→15:01)
[2016-07-21] MEDS: *HR* OxyCODONE/APAP 5/325 TABLET PO PRN ×3 (05:30→17:14)
[2016-07-21 06:07] LABS: Basophils % 0.5 %; Hemoglobin 13.8 g/dL (11.5-15.4)
[2016-07-21 06:09] LABS: Eosinophils # 0.1 K/mcL (0.0-0.6); Hematocrit 42.4 % (35.3-44.9); Immature Granulocytes % 0.3 % (0-4); Immature Platelets 9.1 % (1.1-6.1); Lymphocytes # 2.5 K/mcL (0.6-4.6); Lymphocytes % 37.7 %; Mean Corpuscular HGB Conc 32.5 g/dL (31.6-35.5); Mean Corpuscular Hemoglobin 31.9 pg (28.0-33.3); Mean Corpuscular Volume 97.9 fL (83.0-100.0); Mean Platelet Volume 15.2 fL (9.4-12.4); Monocytes # 0.5 K/mcL (0.0-1.3); Monocytes % 7.8 %; Neutrophils # 3.4 K/mcL (1.6-8.9); Platelet Count 100 K/mcL (140-400); Red Blood Count 4.33 M/mcL (3.82-4.97); Segmented Neutrophils % 51.7 %
[2016-07-21 06:37] LABS: BUN/Creatinine Ratio 7 (6-26); Blood Urea Nitrogen 5 mg/dL (7-20); Calcium 8.4 mg/dL (8.6-10.8); Carbon Dioxide 23 mEq/L (19-29); Chloride 110 mEq/L (98-109); Glucose 127 mg/dL (70-99); Osmolality,Calculated 293 (280-300); Potassium 3.6 mEq/L (3.5-4.5); Sodium 142 mEq/L (136-145); eGFR For African Americans > 60 (> 60); eGFR For Non-African Americans > 60 (> 60)
[2016-07-21] MEDS: 0.9 % Sodium Chloride 1,000 ML IVC SCH (08:39)
[2016-07-21] MEDS: lamoTRIgine 100 MG TABLET PO SCH ×2 (08:40→21:13)
[2016-07-21] MEDS: Nicotine 21 MG PATCH.TD24 TD SCH (08:40)
--- NOTE | 2016-07-21 12:28 | Podiatry Progress Note ---
Date of Encounter: 07/21/16 Time of Encounter: 11:30 - Assessment and Plan (1) Osteomyelitis of foot, left, acute Current Visit: Yes Status: Acute Dressing removed and new dressing applied at bedside Cleansed with saline, adaptic, 4x4, kerlex and coban applied Patient instructed that she will keep dressing clean and dry at home and we will change it at next office visit Follow up in clinic 1 week after discharge Awaiting final cultures from bone biopsy, pending culture results will transition from IV to PO antibiotics and discharge home Patient to go home with post op shoe Limit weight bearing Call with worsening of symptoms or any concerns After discharge patient is to call office with any sudden increase in pain, edema, redness, drainage or with any fevers, chills, n/v or flu like symptoms. Verbalized understanding Subjective Principal diagnosis: Osteomyelitis of the great toe, left foot. Interval history: Patient is post op day #3 following #1 incision and drainage to bone cortex for osteomyelitis #2 partial amputation toe #1 left foot per . She is resting comfortably on arrival, up to chair. Patient states she has been having pain to toe. She has been taking pain medication as prescribed and states it does help some. Patient denies any fevers, shortness of breath, nausea, vomiting or calf pain. Patients dressing intact and LLE elevated on arrival. Patient does appear anxious and tearful at times, hx of anxiety and bipolar disorder. Objective - Vital Signs Vital Signs: Vital Signs Temp Pulse Resp BP Pulse Ox 07/21/16 11:05 98.3 F 79 16 133/71 95 07/21/16 07:27 98.0 F 78 14 128/84 94 L 07/21/16 03:44 98.7 F 96 15 127/77 93 L 07/21/16 00:26 98.7 F 96 15 127/77 93 L 07/21/16 00:00 97.6 F 77 17 138/82 95 07/20/16 20:00 97.9 F 78 18 138/84 96 07/20/16 15:24 97.7 F 80 18 137/88 96 Intake and Output 07/20/16 07/21/16 07/21/16 23:59 07:59 15:59 Intake Total 1450 / 1450 Output Total 200 / 200 Balance -200 / -200 1450 / 1450 Intake: IV Fluids 1450 / 1450 0.9 % Sodium Chloride 1, 1000 / 1000 000 ML @ 75 mls/hr IVC . [id number] [facility] Rx#: [id number] Zosyn 3.375 GM In 200 / 200 Dextrose 5% (Minibag+) 100 ML 100 ML @ 25 mls/hr IVPB Q8HR [facility] Rx#: [id number] Vancocin 1,250 MG In 250 / 250 Dextrose 5% 250 ML @ 166. 667 mls/hr IVPB Q12H [facility] Rx#:[id number] Output: Urine/Stool Mix 200 / 200 Other: Meal Breakfast Percent of Meal Consumed 75% Stool Size Small Stool Consistency loose soft Stool Color Brown # Bowel Movements 1 - Exam Exam: General Examination: CONSTITUTIONAL: Alert, oriented, in no acute distress, non-toxic. EXTREMITIES: CFT 3 seconds all toes. Edema +1 and pedal pulses palpable DP/PT SKIN: No ulcerations or areas of pressure noted NEUROLOGIC: Intact sensation to light touch Surgical site-- Dressing removed, steri strips intact- Suture line intact and free of any clinical signs of infection. No drainage or odor noted Mild post operative edema and erythema noted as expected Patient notes pain with palpation of area Appears to be healing without issue at this time Slight movement of toes - Lab Result Diagrams: 07/21/16 05:46 07/21/16 05:46 Labs: Abnormal lab results Plt Count 100 K/mcL (140-400) L 07/21/16 05:46 MPV 15.2 fL (9.4-12.4) H 07/21/16 05:46 Reactive Lymphocytes Present (Not Present) A 07/19/16 06:34 Platelet Estimate Slight Decrease (Normal) L 07/19/16 06:34 Large Platelets Present (Not Present) A 07/17/16 04:03 Immature Plt Fraction 9.1 % (1.1-6.1) H 07/21/16 05:46 ESR 62 mm/hr (0-15) H 07/16/16 21:03 Chloride 110 mEq/L (98-109) H 07/21/16 05:46 BUN 5 mg/dL (7-20) L 07/21/16 05:46 Glucose 127 mg/dL (70-99) H 07/21/16 05:46 Calcium 8.4 mg/dL (8.6-10.8) L 07/21/16 05:46 C-Reactive Protein 7 mg/L (Less than 5) H 07/17/16 04:03 LDL Cholesterol, Calc 103 mg/dL (0-99) H 07/17/16 04:03 HDL Cholesterol 33 mg/dL (40-59) L 07/17/16 04:03 Microbiology, Last 48 Hours 07/18/16 13:08 Anaerobic Culture - Preliminary Left Great Toe At this time, no anaerobic growth is present. The culture will be finalized after 5 days of incubation. 07/18/16 13:08 Wound Culture - Preliminary Left Great Toe Gram Positive Cocci Consult Discharge Plan - Plan Referrals: NO,PCP [Primary Care Provider] -
--- NOTE | 2016-07-21 16:25 | Internal Med Progress Note ---
Date of Encounter: 07/21/16 Time of Encounter: 08:00 - Assessment and plan (1) Osteomyelitis of foot, left, acute Current Visit: Yes Status: Acute Assessment and plan: CT shows acute osteomyelitis. On Vanco and Zosyn. Podiatry consult appreciated. Did great toe partial amputation and drainage. Wound culture shows gram positive cocci, waiting for final report. Patient is at high risk because she has acute osteomyelitis need a surgical intervention, also she is on vancomycin which need close monitoring (2) Anxiety Current Visit: Yes Status: Chronic Assessment and plan: Continue home medication. Adequate pain control. (3) Cigarette smoker Current Visit: Yes Status: Acute Assessment and plan: Smoking cessation education. Patient is on nicotine patch. Code(s): F17.210 - Nicotine dependence, cigarettes, uncomplicated (4) DVT prophylaxis Current Visit: Yes Status: Acute Assessment and plan: Heparin subcutaneously - Time Spent With Patient Greater than 35 minutes - Subjective Interval history: Patient is a 45-year-old female admitted for left first toe infection. Her past medical history is significant for anxiety, bipolar disorder, and tobacco abuse. Patient was seen and examined. She did partial amputation of left great toe. She is in minimal acute pain, on pain medication. No fever, vital signs stable. Wound culture shows gram-positive cocci, waiting for final report ( called lab, it won't come out until tomorrow). Will continue vancomycin and Zosyn treatment. Podiatry consult and follow-up appreciated. - Constitutional Vitals: Temp Pulse Resp BP Pulse Ox 98.1 F 76 16 130/97 97 07/21/16 15:32 07/21/16 15:32 07/21/16 15:32 07/21/16 15:32 07/21/16 15:32 General appearance: Present: cooperative, mild distress (painful distress in left great toe), A&O X 3, obese, answers questions appropriately - Head Head exam: Present: atraumatic, normocephalic - Eye Eye exam: Present: PERRL, conjuntiva pink, sclera anicteric Pupils: Present: PERRL - Neck Neck exam general surgery: Present: supple, trachea midline. Absent: lymphadenopathy - Respiratory Respiratory exam: Present: CTAB. Absent: accessory muscle use, rales, rhonchi, wheezes - Cardiovascular Cardiovascular exam: Present: RRR, +S1, +S2. Absent: diastolic murmur, gallop, rubs, systolic murmur - GI/Abdominal GI/Abdominal exam: Present: normal bowel sounds, soft, no peritoneal signs. Absent: distended, tenderness - Extremities Exam Extremities exam: Present: warm, radial pulses palpable and symetrical. Absent : calf tenderness, cyanotic, pedal edema Additional comments: Left great toe S/P surgery, well dressed. - Neurological Exam Neurological exam: Present: CN II-XII intact, oriented X3, no focal deficits. Absent: pronater drift, facial droop, speech deficit - Skin Skin exam: Present: dry, intact Internal Medicine: Result - Labs CBC & Chem 7: 07/21/16 05:46 07/21/16 05:46 Labs: Short CBC 07/21/16 Range/Units 05:46 WBC 6.6 (4.3-11.1) K/mcL Hgb 13.8 (11.5-15.4) g/dL Hct 42.4 (35.3-44.9) % Plt Count 100 L (140-400) K/mcL Neutrophils # 3.4 (1.6-8.9) K/mcL BMP 07/21/16 05:46 Sodium 142 Potassium 3.6 Chloride 110 H Carbon Dioxide 23 BUN 5 L Creatinine 0.71 Glucose 127 H Calcium 8.4 L Consult Discharge Plan - Plan Referrals: NO,PCP [Primary Care Provider] -
[2016-07-21] MEDS: Gabapentin 300 MG CAPSULE PO PRN (22:57)
[2016-07-22] MEDS: Piperacillin/Tazobactam 3.375 GM in D5% in Water (Mini-Bag+) 100 ML IVPB SCH ×2 (00:16→08:37)
[2016-07-22] MEDS: 0.9 % Sodium Chloride 1,000 ML IVC SCH (00:17)
[2016-07-22] MEDS: *HR* OxyCODONE/APAP 5/325 TABLET PO PRN ×3 (02:30→15:25)
[2016-07-22] MEDS: Vancomycin 1,250 MG in D5% in Water 250 ML IVPB SCH ×2 (03:26→16:18)
[2016-07-22] MEDS: *HR* Heparin 5,000 UNIT/ML VIAL SQ SCH ×3 (06:15→22:18)
[2016-07-22] MEDS: *HR* Morphine 2 MG/ML SYRINGE IVP PRN ×4 (06:18→19:38)
[2016-07-22] MEDS: lamoTRIgine 100 MG TABLET PO SCH ×2 (08:37→22:18)
[2016-07-22] MEDS: Nicotine 21 MG PATCH.TD24 TD SCH (08:38)
--- NOTE | 2016-07-22 16:28 | Internal Med Progress Note ---
Date of Encounter: 07/22/16 Time of Encounter: 10:00 - Assessment and plan (1) Osteomyelitis of foot, left, acute Current Visit: Yes Status: Acute (2) Anxiety Current Visit: Yes Status: Chronic (3) Cigarette smoker Current Visit: Yes Status: Acute Code(s): F17.210 - Nicotine dependence, cigarettes, uncomplicated (4) DVT prophylaxis Current Visit: Yes Status: Acute - Subjective Interval history: Patient is a 45-year-old female admitted for left first toe infection. Her past medical history is significant for anxiety, bipolar disorder, and tobacco abuse. Patient was seen and examined. She did partial amputation of left great toe. She is in minimal acute pain, on pain medication. No fever, vital signs stable. Wound culture shows gram-positive cocci, preliminary identified as staph, waiting for final report. Will continue vancomycin, DC Zosyn. Will discharge patient on by mouth antibiotic per sensitivity. - Constitutional Vitals: Temp Pulse Resp BP Pulse Ox 98.1 F 76 18 134/84 95 07/22/16 15:30 07/22/16 15:30 07/22/16 15:30 07/22/16 15:30 07/22/16 15:30 General appearance: Present: cooperative, mild distress (painful distress in left great toe), A&O X 3, obese, answers questions appropriately - Head Head exam: Present: atraumatic, normocephalic - Eye Eye exam: Present: PERRL, conjuntiva pink, sclera anicteric Pupils: Present: PERRL - Neck Neck exam general surgery: Present: supple, trachea midline. Absent: lymphadenopathy - Respiratory Respiratory exam: Present: CTAB. Absent: accessory muscle use, rales, rhonchi, wheezes - Cardiovascular Cardiovascular exam: Present: RRR, +S1, +S2. Absent: diastolic murmur, gallop, rubs, systolic murmur - GI/Abdominal GI/Abdominal exam: Present: normal bowel sounds, soft, no peritoneal signs. Absent: distended, tenderness - Extremities Exam Extremities exam: Present: warm, radial pulses palpable and symetrical. Absent : calf tenderness, cyanotic, pedal edema Additional comments: Left great toe s/p amputation, well dressed. - Neurological Exam Neurological exam: Present: CN II-XII intact, oriented X3, no focal deficits. Absent: pronater drift, facial droop, speech deficit - Skin Skin exam: Present: dry, intact Internal Medicine: Result - Labs CBC & Chem 7: 07/21/16 05:46 07/21/16 05:46 Consult Discharge Plan - Plan Referrals: NO,PCP [Primary Care Provider] -
--- NOTE | 2016-07-22 22:47 | Podiatry Progress Note ---
Date of Encounter: 07/22/16 Time of Encounter: 10:30 - Assessment and Plan (1) Osteomyelitis of foot, left, acute Current Visit: Yes Status: Acute Dressing dry and intact at this time Patient instructed that she will keep dressing clean and dry at home and we will change it at next office visit Follow up in clinic 1 week after discharge Awaiting final cultures from bone biopsy, pending culture results will transition from IV to PO antibiotics and discharge home Patient to go home with post op shoe Limit weight bearing Call with worsening of symptoms or any concerns After discharge patient is to call office with any sudden increase in pain, edema, redness, drainage or with any fevers, chills, n/v or flu like symptoms. Verbalized understanding Subjective Principal diagnosis: Osteomyelitis of the great toe, left foot. Interval history: Patient is post op day #4 following #1 incision and drainage to bone cortex for osteomyelitis #2 partial amputation toe #1 left foot per . She is resting comfortably on arrival. Patient denies any issues at this time. Explained that we are only awaiting final cultures. Patient denies any fevers, shortness of breath, nausea, vomiting or calf pain. Patients dressing intact and LLE elevated on arrival. Objective - Vital Signs Vital Signs: Vital Signs Temp Pulse Resp BP Pulse Ox 07/22/16 20:15 98.4 F 88 18 123/79 96 07/22/16 15:30 98.1 F 76 18 134/84 95 07/22/16 10:39 98.7 F 87 16 115/72 93 L 07/22/16 06:52 97.9 F 74 16 111/71 94 L 07/22/16 05:16 97.9 F 76 16 109/63 94 L Intake and Output 07/22/16 07/22/16 07/22/16 07:59 15:59 23:59 Intake Total 350 / 350 1540 / 1540 200 / 200 Output Total 1000 / 1000 800 / 800 Balance -650 / -650 740 / 740 200 / 200 Intake: IV Fluids 350 / 350 1000 / 1000 0.9 % Sodium Chloride 1, 1000 / 1000 000 ML @ 75 mls/hr IVC . [id number] [facility] Rx#: [id number] Zosyn 3.375 GM In 100 / 100 Dextrose 5% (Minibag+) 100 ML 100 ML @ 25 mls/hr IVPB Q8HR [facility] Rx#: [id number] Vancocin 1,250 MG In 250 / 250 Dextrose 5% 250 ML @ 166. 667 mls/hr IVPB Q12H [facility] Rx#:[id number] Oral 540 / 540 200 / 200 Output: Urine 1000 / 1000 800 / 800 Other: Meal Lunch Percent of Meal Consumed 100% # Voids 3 - Exam Exam: General Examination: CONSTITUTIONAL: Alert, oriented, in no acute distress, non-toxic. EXTREMITIES: CFT 3 seconds all toes. Edema +1 and pedal pulses palpable. SKIN: Skin intact, no skin breakdown NEUROLOGIC: Grossly intact sensation to light touch Surgical dressing intact- will leave in place at this time. Unless draining, will only need changed when she comes to clinic for follow up. No calf pain with palpation - Lab Result Diagrams: 07/23/16 05:26 07/23/16 05:26 Labs: Abnormal lab results Plt Count 100 K/mcL (140-400) L 07/21/16 05:46 MPV 15.2 fL (9.4-12.4) H 07/21/16 05:46 Reactive Lymphocytes Present (Not Present) A 07/19/16 06:34 Platelet Estimate Slight Decrease (Normal) L 07/19/16 06:34 Large Platelets Present (Not Present) A 07/17/16 04:03 Immature Plt Fraction 9.1 % (1.1-6.1) H 07/21/16 05:46 ESR 62 mm/hr (0-15) H 07/16/16 21:03 Chloride 110 mEq/L (98-109) H 07/21/16 05:46 BUN 5 mg/dL (7-20) L 07/21/16 05:46 Glucose 127 mg/dL (70-99) H 07/21/16 05:46 Calcium 8.4 mg/dL (8.6-10.8) L 07/21/16 05:46 C-Reactive Protein 7 mg/L (Less than 5) H 07/17/16 04:03 LDL Cholesterol, Calc 103 mg/dL (0-99) H 07/17/16 04:03 HDL Cholesterol 33 mg/dL (40-59) L 07/17/16 04:03 Microbiology, Last 48 Hours 07/18/16 13:08 Wound Culture - Preliminary Left Great Toe Gram Positive Cocci 07/18/16 13:08 Anaerobic Culture - Preliminary Left Great Toe At this time, no anaerobic growth is present. The culture will be finalized after 5 days of incubation. Consult Discharge Plan - Plan Referrals: NO,PCP [Primary Care Provider] -
[2016-07-23] MEDS: *HR* Morphine 2 MG/ML SYRINGE IVP PRN ×2 (00:12→05:48)
[2016-07-23] MEDS: *HR* OxyCODONE/APAP 5/325 TABLET PO PRN ×4 (03:02→20:05)
[2016-07-23] MEDS: Vancomycin 1,250 MG in D5% in Water 250 ML IVPB SCH ×2 (05:00→16:17)
[2016-07-23] MEDS: *HR* Heparin 5,000 UNIT/ML VIAL SQ SCH ×3 (05:48→21:44)
[2016-07-23 06:23] LABS: Basophils % 0.3 %; Eosinophils % 1.6 %; Immature Granulocytes % 0.3 % (0-4)
[2016-07-23 06:25] LABS: Eosinophils # 0.1 K/mcL (0.0-0.6); Hematocrit 40.2 % (35.3-44.9); Hemoglobin 13.2 g/dL (11.5-15.4); Immature Platelets 9.6 % (1.1-6.1); Lymphocytes # 2.4 K/mcL (0.6-4.6); Lymphocytes % 32.7 %; Mean Corpuscular HGB Conc 32.8 g/dL (31.6-35.5); Mean Corpuscular Hemoglobin 31.4 pg (28.0-33.3); Mean Corpuscular Volume 95.7 fL (83.0-100.0); Mean Platelet Volume 14.4 fL (9.4-12.4); Monocytes # 0.7 K/mcL (0.0-1.3); Monocytes % 8.9 %; Neutrophils # 4.1 K/mcL (1.6-8.9); Platelet Count 109 K/mcL (140-400); Segmented Neutrophils % 56.2 %
[2016-07-23 06:27] LABS: BUN/Creatinine Ratio 9 (6-26); Blood Urea Nitrogen 6 mg/dL (7-20); Carbon Dioxide 27 mEq/L (19-29); Chloride 109 mEq/L (98-109); Glucose 89 mg/dL (70-99); Osmolality,Calculated 289 (280-300); Potassium 3.7 mEq/L (3.5-4.5); Sodium 141 mEq/L (136-145); eGFR For African Americans > 60 (> 60); eGFR For Non-African Americans > 60 (> 60)
[2016-07-23] MEDS ORDERED: Vancomycin 1,250 MG in D5% in Water 250 ML IVPB SCH (09:00)
[2016-07-23] MEDS: lamoTRIgine 100 MG TABLET PO SCH ×2 (09:59→21:43)
[2016-07-23] MEDS: Nicotine 21 MG PATCH.TD24 TD SCH (09:59)
[2016-07-23] MEDS ORDERED: *HR* LORazepam 1 MG TABLET PO ONE (16:27)
--- NOTE | 2016-07-23 16:59 | Internal Med Progress Note ---
Date of Encounter: 07/23/16 Time of Encounter: 09:00 - Assessment and plan (1) Osteomyelitis of foot, left, acute Current Visit: Yes Status: Acute Assessment and plan: CT shows acute osteomyelitis. On Vanco. Podiatry consult appreciated. Did great toe partial amputation and drainage. Wound culture shows gram positive cocci, waiting for final report. Patient is at high risk because she has acute osteomyelitis need a surgical intervention, also she is on vancomycin which need close monitoring (2) Anxiety Current Visit: Yes Status: Chronic Assessment and plan: Continue home medication. Adequate pain control. (3) Cigarette smoker Current Visit: Yes Status: Acute Assessment and plan: Smoking cessation education. Patient is on nicotine patch. Code(s): F17.210 - Nicotine dependence, cigarettes, uncomplicated (4) DVT prophylaxis Current Visit: Yes Status: Acute Assessment and plan: Heparin subcutaneously - Time Spent With Patient Greater than 35 minutes - Subjective Interval history: Patient is a 45-year-old female admitted for left first toe infection. Her past medical history is significant for anxiety, bipolar disorder, and tobacco abuse. Patient was seen and examined. She did partial amputation of left great toe. She is in minimal acute pain, on pain medication. No fever, vital signs stable. Wound culture shows gram-positive cocci, preliminary identified as staph, waiting for final report. Will continue vancomycin. Will discharge patient on by mouth antibiotic per sensitivity. - Constitutional Vitals: Temp Pulse Resp BP Pulse Ox 98.6 F 76 16 144/87 96 07/23/16 15:15 07/23/16 15:15 07/23/16 15:15 07/23/16 15:15 07/23/16 15:15 General appearance: Present: cooperative, mild distress (painful distress in left great toe), A&O X 3, obese, answers questions appropriately - Head Head exam: Present: atraumatic, normocephalic - Eye Eye exam: Present: PERRL, conjuntiva pink, sclera anicteric Pupils: Present: PERRL - Neck Neck exam general surgery: Present: supple, trachea midline. Absent: lymphadenopathy - Respiratory Respiratory exam: Present: CTAB. Absent: accessory muscle use, rales, rhonchi, wheezes - Cardiovascular Cardiovascular exam: Present: RRR, +S1, +S2. Absent: diastolic murmur, gallop, rubs, systolic murmur - GI/Abdominal GI/Abdominal exam: Present: normal bowel sounds, soft, no peritoneal signs. Absent: distended, tenderness - Extremities Exam Extremities exam: Present: warm, radial pulses palpable and symetrical. Absent : calf tenderness, cyanotic, pedal edema Additional comments: Left great toe S/P amputation, well dressed. - Neurological Exam Neurological exam: Present: CN II-XII intact, oriented X3, no focal deficits. Absent: pronater drift, facial droop, speech deficit - Skin Skin exam: Present: dry, intact Internal Medicine: Result - Labs CBC & Chem 7: 07/23/16 05:26 07/23/16 05:26 Labs: Short CBC 07/23/16 Range/Units 05:26 WBC 7.3 (4.3-11.1) K/mcL Hgb 13.2 (11.5-15.4) g/dL Hct 40.2 (35.3-44.9) % Plt Count 109 L (140-400) K/mcL Neutrophils # 4.1 (1.6-8.9) K/mcL BMP 07/23/16 05:26 Sodium 141 Potassium 3.7 Chloride 109 Carbon Dioxide 27 BUN 6 L Creatinine 0.69 Glucose 89 Calcium 9.0 Consult Discharge Plan - Plan Referrals: NO,PCP [Primary Care Provider] -
[2016-07-24] MEDS: *HR* OxyCODONE/APAP 5/325 TABLET PO PRN ×3 (00:56→09:27)
[2016-07-24] MEDS: Vancomycin 1,250 MG in D5% in Water 250 ML IVPB SCH (04:13)
[2016-07-24] MEDS: *HR* Heparin 5,000 UNIT/ML VIAL SQ SCH (04:55)
[2016-07-24 06:36] VITALS: BP 127/81
[2016-07-24] MEDS ORDERED: Ibuprofen 600 MG TABLET PO PRN (08:32)
--- NOTE | 2016-07-24 08:39 | Discharge Summary ---
Date of Encounter: 07/24/16 Time of Encounter: 08:00 - Discharge Diagnosis (1) Osteomyelitis of foot, left, acute Priority: Primary Status: Acute (2) Anxiety Priority: Secondary Status: Chronic (3) Cigarette smoker Priority: Secondary Status: Acute Code(s): F17.210 - Nicotine dependence, cigarettes, uncomplicated (4) DVT prophylaxis Priority: Secondary Status: Acute - Discharge Medications Prescriptions: OxyCODONE/APAP 5/325 [Percocet 5/325 MG] 1 each PO Q4HR PRN #7 tablet PRN Reason: Pain Clindamycin [Cleocin] 450 mg PO Q6HR #90 capsule Ibuprofen [Motrin] 600 mg PO Q8HR PRN #20 tablet PRN Reason: Pain Lactobacillus [Culturelle] 2 each PO DAILY #30 cap.sprink Nicotine Patch [Nicoderm] 21 mg TD DAILY #14 patch.td24 Home Medications: Buspirone HCl [Buspar] 15 mg PO BID PRN 07/17/16 [History] Doxepin [Sinequan] 25 mg PO DAILY 07/17/16 [History] Gabapentin 600 mg PO QID PRN 07/17/16 [History] Lamotrigine 200 mg PO BID 07/17/16 [History] Quetiapine Fumarate [Seroquel] 25 - 50 mg PO HS 07/17/16 [History] Clindamycin [Cleocin] 450 mg PO Q6HR #90 capsule 07/24/16 [Rx] Ibuprofen [Motrin] 600 mg PO Q8HR PRN #20 tablet 07/24/16 [Rx] Lactobacillus [Culturelle] 2 each PO DAILY #30 cap.sprink 07/24/16 [Rx] Nicotine Patch [Nicoderm] 21 mg TD DAILY #14 patch.td24 07/24/16 [Rx] OxyCODONE/APAP 5/325 [Percocet 5/325 MG] 1 each PO Q4HR PRN #7 tablet 07/24/16 [ Rx] Allergies/Adverse Reactions: Allergies No Known Allergies Allergy (Verified 07/16/16 19:48) Date of admission: 07/17/16 01:04 Primary care physician: PCP NO Consults: 07/17/16 09:28 Consult to Podiatry [CONS] Routine Consulting Provider: Podiatry [facility] Reason for Consult: Left big toe infection Call Completed: Yes Discharging clinician: Alverto Vasquez Anticipated date of discharge: 07/24/16 - Patient Status Disposition: Home, Self-Care Condition: Good Functional capacity at discharge: independent ambulation Overall status at discharge: patient is progressing back to baseline - Discharge Instructions Follow Up With: Delgado Wade DPM [Partnered Physician] - 07/28/16 9:45 am NO,PCP [Primary Care Provider] - - Diet and Activity Activity: increase activity as tolerated (Weight baering per podiatry instruction.) Diet: advance to your usual diet Interval History: Ms. Copeland is a 45 year old female with PMH of anxiety, bipolar disorder, and neuropathy who presents to the ER for evaluation of worsening pain in left great toe. Patient reports undergoing toenail resection 3 weeks ago secondary to an ingrown toenail and states status post surgical resection she started experiencing severe pain. Reports of worsening pain for the last few days without any adequate control with [id number] pain medications to which she came to the ER. In the ER patient was noted to have osteomyelitis of the distal phalanx prompting her admission. At this time she is resting in bed and complains of severe pain in the left great toe which was not adequately relieved with the pain management she received in the ER. She however denies any headache, chest pain, shortness of breath, abdominal pain, nausea, vomiting , fever, or chills. Hospital course: Ms. Copeland is a 45 year old female admitted for left foot great toe infection and osteomyelitis. She was given antibiotic treatment. Podiatry consult is called and saw patient. Partial amputation has been done by podiatry. Culture sent and the results shows staph hominis, sensitive to clindamycin. Will discharge patient on by mouth clindamycin. I saw and examined the patient today. She is awake alert, oriented 3. No fever, vitals are stable. Complaint of the left foot great toe pain but pain is less than previous days. Patient with discharge with by mouth antibiotics and the pain medication. Prescribe her lactobacillus to prevent C. difficile. ( choose clindamycin instead of other by mouth medication because clindamycin has better bone penetration). Time spent discussing smoking cessation with patient: more than 10 minutes - Time Spent with Patient Total time spent providing and/or coordinating discharge services: 40 min Greater than 30 minutes - Constitutional Vitals: Temp Pulse Resp BP Pulse Ox 98.4 F 84 18 127/81 93 L 07/24/16 06:34 07/24/16 06:34 07/24/16 06:34 07/24/16 06:34 07/24/16 06:34 General appearance: Present: cooperative, mild distress (painful distress in left great toe), A&O X 3, obese, answers questions appropriately - Head Head exam: Present: atraumatic, normocephalic - Eye Eye exam: Present: PERRL, conjuntiva pink, sclera anicteric Pupils: Present: PERRL - Neck Neck exam general surgery: Present: supple, trachea midline. Absent: lymphadenopathy - Respiratory Respiratory exam: Present: CTAB. Absent: accessory muscle use, rales, rhonchi, wheezes - Cardiovascular Cardiovascular exam: Present: RRR, +S1, +S2. Absent: diastolic murmur, gallop, rubs, systolic murmur - GI/Abdominal GI/Abdominal exam: Present: normal bowel sounds, soft, no peritoneal signs. Absent: distended, tenderness - Extremities Exam Extremities exam: Present: warm, radial pulses palpable and symetrical. Absent : calf tenderness, cyanotic, pedal edema Additional comments: Left great toe s/p surgery, well dressed. - Neurological Exam Neurological exam: Present: CN II-XII intact, oriented X3, no focal deficits. Absent: pronater drift, facial droop, speech deficit - Skin Skin exam: Present: dry, intact
[2016-07-24] MEDS ORDERED: Lactobacillus 1 EACH CAP.SPRINK PO SCH (09:00)
--- NOTE | 2016-07-24 09:05 | Podiatry Progress Note ---
Date of Encounter: 07/24/16 Time of Encounter: 08:30 - Assessment and Plan (1) Osteomyelitis of foot, left, acute Current Visit: Yes Status: Acute Culture returned positive for staphylococcus hominis Spoke with internal med- will start on clindamycin 7 day supply, culturelle, 7 percocet and then transition to ibuprofen MADHURI Leyva made follow up appointment in office Covered discharge instructions and medications with patient, verbalized understanding, denies any questions Patient to go home with post op shoe Limit weight bearing Call with worsening of symptoms or any concerns After discharge patient is to call office with any sudden increase in pain, edema, redness, drainage or with any fevers, chills, n/v or flu like symptoms. Verbalized understanding Patient instructed to keep extremity elevated as much as possible to decrease swelling Subjective Principal diagnosis: Osteomyelitis of the great toe, left foot. Interval history: Patient is post op day #6 following #1 incision and drainage to bone cortex for osteomyelitis #2 partial amputation toe #1 left foot per . She is resting comfortably up to chair on arrival. Patient denies any issues at this time. Patient denies any fevers, shortness of breath, nausea, vomiting or calf pain. Patients dressing intact and LLE elevated on arrival. Objective - Vital Signs Vital Signs: Vital Signs Temp Pulse Resp BP Pulse Ox 07/24/16 06:34 98.4 F 84 18 127/81 93 L 07/24/16 00:00 98.6 F 76 17 126/73 97 07/23/16 20:15 98.5 F 86 18 132/88 94 L 07/23/16 15:15 98.6 F 76 16 144/87 96 07/23/16 10:52 98.4 F 79 20 128/85 91 L Intake and Output 07/23/16 07/24/16 07/24/16 23:59 07:59 15:59 Intake Total 850 / 850 300 / 300 100 / 100 Output Total 325 / 325 Balance 525 / 525 300 / 300 100 / 100 Intake: IV Fluids 250 / 250 Vancocin 1,250 MG In 250 / 250 Dextrose 5% 250 ML @ 166. 667 mls/hr IVPB Q12H HARDIK Rx#:[id number] Oral 600 / 600 300 / 300 100 / 100 Output: Urine 325 / 325 Other: Meal Breakfast Percent of Meal Consumed 100% # Voids 2 1 - Exam Exam: Patient awake, alert and oriented Dressing to surgical site clean dry and intact Post op sock and shoe in place Patient states pain is minimal Warm from toes to tibia Cap refill immediate, pulses palpable Denies numbness or tingling no limited ROM No calf pain with palpation Mild post operative edema and erythema as expected No clinical signs of infection at this time - Lab Result Diagrams: 07/23/16 05:26 07/23/16 05:26 Labs: Abnormal lab results Plt Count 109 K/mcL (140-400) L 07/23/16 05:26 MPV 14.4 fL (9.4-12.4) H 07/23/16 05:26 Reactive Lymphocytes Present (Not Present) A 07/19/16 06:34 Platelet Estimate Slight Decrease (Normal) L 07/19/16 06:34 Large Platelets Present (Not Present) A 07/17/16 04:03 Immature Plt Fraction 9.6 % (1.1-6.1) H 07/23/16 05:26 ESR 62 mm/hr (0-15) H 07/16/16 21:03 BUN 6 mg/dL (7-20) L 07/23/16 05:26 C-Reactive Protein 7 mg/L (Less than 5) H 07/17/16 04:03 LDL Cholesterol, Calc 103 mg/dL (0-99) H 07/17/16 04:03 HDL Cholesterol 33 mg/dL (40-59) L 07/17/16 04:03 Microbiology, Last 48 Hours 07/18/16 13:08 Wound Culture - Final Left Great Toe Staphylococcus hominis 07/18/16 13:08 Anaerobic Culture - Final Left Great Toe No anaerobes were recovered. Consult Discharge Plan - Plan Additional Instructions: Keep dressing in place. Do not remove it - it will be changed at your 1 week followup. Wear your ortho shoe when you walk. You can have touch down weight bearing to your heel only. Finish all of your antibiotics - do not stop them before all of the pills are finished. Go to the nearest emergency room for any chest pain, shortness of breath, increased pain, increased redness, any yellow, green, or foul smelling drainage. Referrals: Delgado Wade DPM [Partnered Physician] - 07/28/16 9:45 am NO,PCP [Primary Care Provider] - Prescriptions: Clindamycin [Cleocin] 450 mg PO Q6HR #90 capsule Ibuprofen [Motrin] 600 mg PO Q8HR PRN #20 tablet PRN Reason: Pain Lactobacillus [Culturelle] 2 each PO DAILY #30 cap.sprink Nicotine Patch [Nicoderm] 21 mg TD DAILY #14 patch.td24 OxyCODONE/APAP 5/325 [Percocet 5/325 MG] 1 each PO Q4HR PRN #7 tablet PRN Reason: Pain
[2016-07-24] MEDS: lamoTRIgine 100 MG TABLET PO SCH (09:27)
[2016-07-24] MEDS ORDERED: Aminoglycoside Consult 1 EACH MC ONE (09:49)
[2016-07-24] MEDS: Nicotine 21 MG PATCH.TD24 TD SCH (09:52)
== END 2016-07-24 09:50 | disposition home or self-care (01) | DRG 497 ==
LOC: EDBD → EMEROO 19:35 → 3NENU 07-17 01:04
PROVIDERS: ADMIT Internal Medicine; ATTEND Internal Medicine

== ENCOUNTER 2020-03-20 22:18 | Observation (INO) ==
[2020-03-21] MEDS ORDERED: Naloxone 0.4 MG/ML INJ IVP PRN (01:54)
[2020-03-21] MEDS ORDERED: Ondansetron 4 MG/2 ML VIAL IVP PRN (01:54)
[2020-03-21] MEDS ORDERED: 0.9 % Sodium Chloride 250 ML IVC SCH (02:00)
[2020-03-21 02:10] LABS: Adenovirus Not Detected (Not Detect); Bordetella Pertussis Not Detected (Not Detect); Chlamydophila pneumoniae Not Detected (Not Detect); Coronavirus 229E Not Detected (Not Detect); Coronavirus HKU1 Not Detected (Not Detect); Coronavirus NL63 Not Detected (Not Detect); Coronavirus OC43 Not Detected (Not Detect); Human Metapneumovirus Not Detected (Not Detect); Human Rhinovirus/Enterovirus Not Detected (Not Detect); Influenza A Subtype 2009 H1 Not Detected (Not Detect); Influenza B Not Detected (Not Detect); Mycoplasma pneumoniae Not Detected (Not Detect); Parainfluenza Virus 1 Not Detected (Not Detect); Parainfluenza Virus 2 Not Detected (Not Detect); Parainfluenza Virus 3 Not Detected (Not Detect); Parainfluenza Virus 4 Not Detected (Not Detect); Respiratory Syncytial Virus Not Detected (Not Detect); SARS-CoV-2 Not Detected (Not Detect)
[2020-03-21] MEDS ORDERED: Perflutren Lipid Microsphere 1.3 ML in 0.9 % Sodium Chloride 8.7 ML IVP PRN (03:01)
[2020-03-21 04:20] LABS: Prothrombin Time 11.2 Seconds (9.4-12.1)
[2020-03-21 04:35] LABS: Alanine Aminotransferase 58 Units/L (7-52); Albumin 3.8 g/dL (3.5-5.7); Albumin/Globulin Ratio 1.4 (1.1-2.2); Alkaline Phosphatase 47 Units/L (34-104); Aspartate Amino Transferase 84 Units/L (13-39); BUN/Creatinine Ratio 27 (6-26); Bilirubin,Total 0.4 mg/dL (0.3-1.0); Blood Urea Nitrogen 19 mg/dL (6-20); Calcium 9.1 mg/dL (8.6-10.3); Carbon Dioxide 28 mEq/L (23-29); Chloride 107 mEq/L (98-107); Chol/HDL Ratio 3.4 (0-4.9); Cholesterol 213 mg/dL (< 200); Globulin 2.7 g/dL (2.4-3.5); Glucose 92 mg/dL (70-105); HDL Cholesterol 62 mg/dL (40-59); LDL Cholesterol,Calculated 134 mg/dL (< 100); Magnesium 1.9 mg/dL (1.6-2.6); Osmolality,Calculated 290 (280-300); Phosphorous 4.1 mg/dL (2.7-4.5); Sodium 139 mEq/L (136-145); Total Protein 6.5 g/dL (6.4-8.9); Triglycerides 84 mg/dL (< 150); eGFR For African Americans > 60 (> 60); eGFR For Non-African Americans > 60 (> 60)
[2020-03-21 04:59] LABS: Basophils % 0.4 %
[2020-03-21 05:00] LABS: Folate 6.8 ng/mL (3.0-16.0)
[2020-03-21 05:01] LABS: Vitamin B12 477 pg/mL (250-1100)
[2020-03-21 05:01] LABS: Eosinophils # 0.1 K/mcL (0.0-0.6); Eosinophils % 0.8 %; Hematocrit 40.1 % (35.3-44.9); Immature Granulocytes % 0.3 % (0-4); Immature Platelets 11.7 % (1.1-6.1); Immature Reticulocyte % 7.3 % (11.0-38.0); Lymphocytes # 2.9 K/mcL (0.6-4.6); Lymphocytes % 39.1 %; Mean Corpuscular HGB Conc 32.4 g/dL (31.6-35.5); Mean Corpuscular Hemoglobin 30.8 pg (28.0-33.3); Monocytes # 0.7 K/mcL (0.0-1.3); Monocytes % 9.2 %; Neutrophils # 3.8 K/mcL (1.6-8.9); Platelet Count 105 K/mcL (140-400); Red Blood Count 4.22 M/mcL (3.82-4.97); Red Cell Distribution Width 13.3 % (11.5-14.5); Retculocyte # 0.06 M/mcL (0.05-0.10); Reticulocyte % 1.5 % (1.6-2.8); Segmented Neutrophils % 50.2 %; White Blood Count 7.5 K/mcL (4.3-11.1)
[2020-03-21 06:09] LABS: HIV-1&2 Antibody & p24 Ag Nonreactive (Nonreactive)
[2020-03-21 11:35] VITALS: BP 118/80
== END 2020-03-21 15:15 | disposition home or self-care (01) ==
LOC: CDU → 3BNU 03-21 03:23
PROVIDERS: ADMIT Internal Medicine; ATTEND Internal Medicine

== ENCOUNTER 2020-03-27 12:40 | Inpatient (IN) ==
[2020-03-27] MEDS ORDERED: ALPRAZolam 0.5 MG TABLET PO ONE (12:54)
[2020-03-27] MEDS ORDERED: hydrOXYzine pamoate 25 MG CAPSULE PO ONE (13:14)
[2020-03-27 13:22] LABS: Eosinophils % 0.1 %; Hemoglobin 13.7 g/dL (11.5-15.4); Mean Corpuscular HGB Conc 32.9 g/dL (31.6-35.5); Mean Corpuscular Volume 95.6 fL (83.0-100.0); Red Cell Distribution Width 13.7 % (11.5-14.5)
[2020-03-27 13:24] LABS: Basophils % 0.3 %; Hematocrit 41.6 % (35.3-44.9); Immature Granulocytes % 0.3 % (0-4); Immature Platelets 12.9 % (1.1-6.1); Lymphocytes # 1.8 K/mcL (0.6-4.6); Lymphocytes % 20.7 %; Mean Corpuscular Hemoglobin 31.5 pg (28.0-33.3); Monocytes # 0.3 K/mcL (0.0-1.3); Monocytes % 3.4 %; Neutrophils # 6.5 K/mcL (1.6-8.9); Platelet Count 151 K/mcL (140-400); Red Blood Count 4.35 M/mcL (3.82-4.97); Segmented Neutrophils % 75.2 %; White Blood Count 8.7 K/mcL (4.3-11.1)
[2020-03-27 13:29] LABS: Bilirubin,Urine Negative (Negative); Blood,Urine Negative (Negative); Clarity,Urine Clear (Clear); Color,Urine Colorless (Yellow); Glucose,Urine (UA) Normal (Normal); Ketones,Urine Negative (Negative); Leukocyte Esterase,Urine Negative (Negative); Nitrite,Urine Negative (Negative); PH,Urine 6.5 pH Units (5.0-8.0); Protein,Urine Negative (Neg-Trace); Specific Gravity,Urine 1.011 (1.010-1.025); Urobilinogen,Urine Normal (Normal)
[2020-03-27 13:37] LABS: Estimated Average Glucose 117 mg/dl
[2020-03-27 13:40] LABS: Amphetamine Screen,Urine Negative ng/mL (Cutoff=1000); Barbiturate Screen,Urine Negative ng/mL (Cutoff=200); Benzodiazepines Screen,Urine Negative ng/mL (Cutoff=200); Cannabinoid Screen,Urine Negative ng/mL (Cutoff = 50); Cocaine Screen,Urine Negative ng/mL (Cutoff= 300); Opiate Screen,Urine Negative ng/mL (Cutoff=300); Phencyclidine Screen,Urine Negative ng/mL (Cutoff=25)
[2020-03-27] MEDS ORDERED: Nicotine 21 MG PATCH.TD24 TD ONE (13:43)
[2020-03-27 13:44] LABS: Acetaminophen < 10 mcg/mL (10-20); BUN/Creatinine Ratio 21 (6-26); Blood Urea Nitrogen 14 mg/dL (6-20); Calcium 9.6 mg/dL (8.6-10.3); Carbon Dioxide 27 mEq/L (23-29); Chloride 106 mEq/L (98-107); Cholesterol 237 mg/dL (< 200); Ethanol < 10 mg/dL (Less than 10); Glucose 114 mg/dL (70-105); HDL Cholesterol 80 mg/dL (40-59); LDL Cholesterol,Calculated 142 mg/dL (< 100); Osmolality,Calculated 289 (280-300); Potassium 4.2 mEq/L (3.5-5.1); Salicylate 5.2 mg/dL (15.0-30.0); Sodium 139 mEq/L (136-145); Triglycerides 73 mg/dL (< 150); eGFR For African Americans > 60 (> 60); eGFR For Non-African Americans > 60 (> 60)
[2020-03-27] MEDS ORDERED: haloperidoL 5 MG TABLET PO PRN (15:11)
[2020-03-27] MEDS ORDERED: MOM Conc 10 ML UD.LIQ PO PRN (15:11)
[2020-03-27] MEDS ORDERED: *HR* LORazepam 2 MG/ML VIAL IM PRN (15:11)
[2020-03-27] MEDS ORDERED: Ibuprofen 400 MG TABLET PO PRN (15:11)
[2020-03-27] MEDS ORDERED: Haloperidol Lactate 5 MG/ML VIAL IM PRN (15:11)
[2020-03-27] MEDS ORDERED: *HR* LORazepam 1 MG TABLET PO PRN (15:11)
[2020-03-27] MEDS: traZODone 50 MG TABLET PO PRN (20:03)
[2020-03-27] MEDS: hydrOXYzine pamoate 25 MG CAPSULE PO PRN (20:03)
[2020-03-27] MEDS: Gabapentin 300 MG CAPSULE PO SCH (20:03)
[2020-03-28] MEDS: Nicotine 21 MG PATCH.TD24 TD SCH (08:42)
[2020-03-28] MEDS: Gabapentin 300 MG CAPSULE PO SCH ×3 (08:43→20:06)
[2020-03-28] MEDS: Cyanocobalamin (B-12) 1,000 MCG TABLET PO SCH (08:44)
[2020-03-28] MEDS: hydrOXYzine pamoate 25 MG CAPSULE PO PRN ×2 (12:38→20:07)
[2020-03-28] MEDS: traZODone 50 MG TABLET PO PRN (20:06)
[2020-03-28] MEDS ORDERED: ARIPiprazole 5 MG TABLET PO SCH (21:00)
[2020-03-28] MEDS: Fluticasone Propionate Nasal 50 MCG/SPRAY BOTTLE NS PRN (22:18)
[2020-03-28] MEDS ORDERED: traZODone 50 MG TABLET PO ONE (22:33)
[2020-03-28] MEDS ORDERED: hydrOXYzine pamoate 25 MG CAPSULE PO ONE (22:35)
[2020-03-29] MEDS: Nicotine 21 MG PATCH.TD24 TD SCH (08:47)
[2020-03-29] MEDS: Cyanocobalamin (B-12) 1,000 MCG TABLET PO SCH (08:49)
[2020-03-29] MEDS: Gabapentin 300 MG CAPSULE PO SCH ×3 (08:49→21:03)
[2020-03-29] MEDS: ARIPiprazole 5 MG TABLET PO SCH (11:02)
[2020-03-29] MEDS: Mag Hydrox/Al Hydrox/Simeth 30 ML UDC PO PRN ×2 (15:39→23:58)
[2020-03-29] MEDS: Fluticasone Propionate Nasal 50 MCG/SPRAY BOTTLE NS PRN (15:39)
[2020-03-29] MEDS: hydrOXYzine pamoate 25 MG CAPSULE PO PRN (21:04)
[2020-03-29] MEDS: traZODone 50 MG TABLET PO PRN (21:04)
[2020-03-30] MEDS: Cyanocobalamin (B-12) 1,000 MCG TABLET PO SCH (08:11)
[2020-03-30] MEDS: Gabapentin 300 MG CAPSULE PO SCH (08:11)
[2020-03-30] MEDS: ARIPiprazole 5 MG TABLET PO SCH (08:11)
[2020-03-30] MEDS: Nicotine 21 MG PATCH.TD24 TD SCH (09:29)
[2020-03-30] MEDS ORDERED: traZODone 50 MG TABLET PO PRN (10:00)
[2020-03-30 10:20] VITALS: BP 118/78
== END 2020-03-30 12:22 | disposition home or self-care (01) | DRG 885 ==
LOC: EMEROOARM 12:40 → INTOOBSV 15:07 → 1ANU 15:07
PROVIDERS: ADMIT Psychiatry & Neurology Psychiatry; ATTEND Psychiatry & Neurology Psychiatry